=== PATIENT | female | born 1970 | race Caucasian/White ===

== ENCOUNTER 2023-02-23 09:24 | Outpatient (OUT) | payer BC, SELFPAY ==
--- NOTE | 2023-02-23 09:32 | MM_ITS ---
Patient: SHRADDHA DAN Exam Date: 02/23/2023 : 1970 Gender:F Ordering : DR Diogo Ervin . Admission #: [id number] Family : DR Sunny Joya . Order #: [id number] CLICK HERE TO VIEW EXAM RADIOLOGY REPORT PROCEDURE: MM TOMOSYNTHESIS SCREENING BI COMPARISON: MG MAMM SCREEN 3D ASHLEY CAD, 10/22/2020. MG MAMM SCREEN 3D ASHLEY CAD, 11/21/2021. INDICATIONS: Screening Calculator Name NCI Breast Cancer Risk Assessment Tool 5 Year Breast Cancer Risk 0.90% Lifetime Breast Cancer Risk 8.80% Personal Breast Cancer No Personal Ovarian Cancer No Treatments None Family Cancers Grandfather-maternal with pancreas cancer at age ~75; Father with colon cancer at age 74; Grandmother-maternal with stomach cancer at age ~70. LOCATION: [facility] BREAST COMPOSITION: Scattered areas fibroglandular density. FINDINGS: DIAGNOSTIC CATEGORY 1--NEGATIVE. NO CHANGE FROM COMPARISON ASSESSMENT. Scattered benign-appearing calcifications are present. Scattered benign-appearing lymph nodes are present. RIGHT BREAST: No significant suspicious finding. LEFT BREAST: No significant suspicious finding. RECOMMENDATIONS: ROUTINE MAMMOGRAM AND CLINICAL EVALUATION IN 12 MONTHS. PLEASE NOTE: A NORMAL MAMMOGRAM DOES NOT EXCLUDE THE POSSIBILITY OF BREAST CANCER. A CLINICALLY SUSPICIOUS PALPABLE LUMP SHOULD BE BIOPSIED. Dictated by: Alonzo Jaramillo MD on 02/23/2023 at 12:21 Approved by: Alonzo Jaramillo MD on 02/23/2023 at 12:34
== END 2023-02-23 09:25 | disposition home or self-care (01) ==
LOC: MAMMO 09:25
PROVIDERS: PCP Family Medicine; Visit Provider Obstetrics & Gynecology
DX: Z12.31 Encounter for screening mammogram for malignant neoplasm of breast (principal); Z80.0 Family history of malignant neoplasm of digestive organs
CPT/HCPCS: 77063; 77067

== ENCOUNTER 2023-05-12 07:51 | Outpatient (OUT) | payer BC, SELFPAY ==
[2023-05-12 09:00] LABS: Basophils Percent Auto 0.3 % (0.2-2.0); Eosinophils Absolute Auto 0.1 10^3/uL (0.0-0.7); Eosinophils Percent Auto 1.3 % (0.9-7.0); Hematocrit 40.8 % (36.0-48.0); Hemoglobin 12.6 g/dL (12.0-16.0); Immature Granulocytes Abs Auto 0.01 10^3/uL (0.00-0.03); Immature Granulocytes Pct Auto 0.1 % (0.0-0.5); Lymphocytes Absolute Auto 1.7 10^3/uL (1.2-3.8); Lymphocytes Percent Auto 25.2 % (20.5-60.0); Mean Corpuscular HGB Conc 30.9 g/dL (29.9-35.2); Mean Corpuscular Hemoglobin 28.9 pg (26.7-34.0); Mean Corpuscular Volume 93.6 fL (81.0-99.0); Mean Platelet Volume 10.7 fL (9.5-13.5); Monocytes Absolute Auto 0.4 10^3/uL (0.3-0.8); Monocytes Percent Auto 5.7 % (1.7-12.0); Neutrophils Absolute Auto 4.5 10^3/uL (1.4-6.5); Neutrophils Percent Auto 67.4 % (43.0-75.0); Platelet Count 333 10^3/uL (150-450); Red Blood Count 4.36 10^6/uL (4.20-5.40); Red Cell Distribution Width 14.1 % (11.0-15.0); White Blood Count 6.7 10^3/uL (4.0-11.0)
[2023-05-12 09:21] LABS: Estimated Average Glucose 123 mg/dL; Glycohemoglobin A1C 5.9 % (4.5-6.2)
[2023-05-12 09:34] LABS: Alanine Aminotransferase 26 U/L (14-59); Albumin Globulin Ratio 0.7; Albumin Level 3.3 g/dL (3.4-5.0); Alkaline Phosphatase 97 U/L (46-116); Anion Gap 13.3; Aspartate Amino Transferase 33 U/L (15-37); BUN Creatinine Ratio 21.3; Bilirubin Total 0.7 mg/dL (0.2-1.0); Calcium 8.6 mg/dL (8.5-10.1); Carbon Dioxide 27.1 mmol/L (21.0-32.0); Chloride 106 mmol/L (98-107); Chol HDL Ratio 3.5; Cholesterol 180 mg/dL (<=200); Estimated GFR (African America >60 (>=60); Estimated GFR (Non-African Ame >60 (>=60); Globulin 4.5 g/dL; Glucose 118 mg/dL (74-106); HDL Cholesterol 51 mg/dL (40-60); LDL Cholesterol Calculated 107.4 mg/dL; Potassium 5.4 mmol/L (3.5-5.1); Sodium 141 mmol/L (136-145); Total Protein 7.8 g/dL (6.4-8.2); Triglycerides 108 mg/dL (<=150); VLDL CHOLESTEROL 21.6 mg/dL
[2023-05-12 09:52] LABS: Thyroid Stimulating Hormone 2.211 uIU/mL (0.358-3.740)
[2023-05-14 12:08] LABS: Insulin 4.5 uIU/mL (2.6-24.9)
== END 2023-05-12 07:52 | disposition home or self-care (01) ==
LOC: LAB 07:52
PROVIDERS: PCP Family Medicine; Visit Provider Family Medicine
DX: Z00.00 Encounter for general adult medical examination without abnormal findings (principal)
CPT/HCPCS: 36415; 80053; 80061; 82306; 83036; 83525; 83540; 84436; 84443; 84481; 85025

== ENCOUNTER 2023-05-28 20:47 | Outpatient (REF) | payer BC, SELFPAY ==
[2023-06-01 15:09] LABS: Age Gdln ACOG Testing Note (.); HPV Aptima Negative (Negative); IGP, Aptima HPV, rfx 16/18,45 Note (.)
== END 2023-05-28 20:48 | disposition home or self-care (01) ==
LOC: LAB 20:47
PROVIDERS: PCP Family Medicine; Visit Provider Obstetrics & Gynecology
DX: Z01.419 Encounter for gynecological examination (general) (routine) without abnormal findings (principal)
CPT/HCPCS: 87624; G0145

== ENCOUNTER 2023-06-13 14:58 | Outpatient (OUT) | payer BC, SELFPAY ==
--- NOTE | 2023-06-13 14:20 | US_ITS ---
The [address] [address] Patient Name: SHRADDHA DAN MRN: [id number] date: 1970 Sex: F Assigned Patient Location: US Current Patient Location: US Accession/Order Number: [id number] Exam Date: 06/13/2023 14:20 Report Date: 06/13/2023 16:32 At the request of: KAYA ALARCON Procedure: US pelvis w/ transvaginal EXAM: US pelvis w/ transvaginal HISTORY: ENLARGED UTERUS COMPARISON: None. TECHNIQUE: Pelvic sonography was performed utilizing grayscale and color Doppler technique. FINDINGS: Anteverted uterus measures 10.2 x 4.3 x 7.0 cm. Uterine endometrial stripe measures 1.5 cm in thickness. Right ovary not visualized. Left ovary measures 1.9 x 1.2 x 1.5 cm. Normal left ovarian parenchyma. Scant color flow seen, likely related to deep positioning. No significant free fluid within the pelvis. US/US pelvis w/ transvaginal IMPRESSION: 1. Thickened postmenopausal endometrium. 2. Right ovary not visualized. Left ovary is unremarkable. Electronically authenticated by: CHERELLE MCLEAN Date: 06/13/2023 16:32
== END 2023-06-13 14:59 | disposition home or self-care (01) ==
LOC: US 14:58
PROVIDERS: PCP Family Medicine; Visit Provider Obstetrics & Gynecology
DX: N85.2 Hypertrophy of uterus (principal); R19.00 Intra-abdominal and pelvic swelling, mass and lump, unspecified site
CPT/HCPCS: 76830; 76856

== ENCOUNTER 2023-07-16 | Outpatient (REF) | payer BC, SELFPAY ==
--- OUTSIDE RECORDS SUMMARY | 2023-07-27 08:10 | XMS_ITS | CCD ---
Author Name Unknown Address [address] [place] [address] Organization [facility] Care Team Providers Care Distribution Associate Name Role Phone DMITRIY, DR RODRIGUEZ Admitting Unavailable HOY, DR RODRIGUEZ Attending Unavailable HOY, DR RODRIGUEZ Consulting Unavailable HOY, DR RODRIGUEZ Primary Care Unavailable HOY, DR RODRIGUEZ Primary Care Unavailable DORIAN, DR KIRKPATRICK Admitting Unavailable VINNY, DR EUNICE Mcfadden Consulting Unavailable DORIAN, DR KIRKPATRICK Attending Unavailable DORIAN, DR KIRKPATRICK Consulting Unavailable DMITRIY, DR RODRIGUEZ Primary Care Unavailable KARSALLYK, DR SPENCER Admitting Unavailable KARASIK, DR SPENCER Attending Unavailable KARASIK, DR SPENCER Consulting Unavailable DORIAN, KAYA Attending Unavailable DORIAN, KAYA Attending Unavailable KAYA ALARCON Attending Unavailable Problems Active Problems Problem Classification Problem Date Documented Date Episodic/Chronic Immunizations and screening for infectious disease (1 source) Encounter for screening for human papillomavirus (HPV); Translations: [ENC SCREENING HUMAN PAPILLOMAVIRUS] Onset: 02-26-2022 Episodic Other screening for suspected conditions (not mental disorders or infectious disease) (8 sources) Encounter for screening for malignant neoplasm of cervix; Translations: [Encounter for screening mammogram for malignant neoplasm of breast] Onset: 11-21-2021 Episodic Past or Other Problems Problem Classification Problem Date Documented Da te Episodic/Chronic Residual codes; unclassified (1 source) Family history of malignant neoplasm of digestive organs; Translations: [FAM HX MALIG NEOPLASM DIGESTIV ORGN] Onset: 11-24-2021 Episodic Results Test Name Value Interpretation Reference Range Facility INSULINon 05-08-2022 Insulin 14.8 uIU/mL Normal 2.6-24.9 [facility] Comment on above: Performed By: #### I NSULIN #### [facility] [address] [place] [address] Dr. Carol Ann Rivas CBC AUTO DIFFon 05-06-2022 BASO # 0.0 103/ul Normal 0.0-0.1 [facility] Comment on above: Performed By: #### C BC #### [facility] [address] [place] [address] Dr. Carol Ann Rivas Basophils/100 WBC (Bld) 0.5 % Normal 0.2-2.0 [facility] Comment on above: Performed By: #### C BC #### [facility] [address] [place] [address] Dr. Carol Ann Rivas EO # 0.2 103/ul Normal 0.0-0.7 [facility] Comment on above: Performed By: #### C BC #### [facility] [address] [place] [address] Dr. Carol Ann Rivas Eosinophils/100 WBC (Bld) 2.2 % Normal 0.9-7.0 [facility] Comment on above: Performed By: #### C BC #### [facility] [address] [place] [address] Dr. Carol Ann Rivas Erythrocyte distribution width (RBC) [Ratio] 14.5 % Normal 11.0-15.0 [facility] Comment on above: Performed By: #### C BC #### [facility] [address] [place] [address] Dr. Carol Ann Rivas Hematocrit (Bld) [Volume fraction] 40.7 % Normal 36.0-48.0 [facility] Comment on above: Performed By: #### C BC #### [facility] [address] [place] [address] Dr. Carol Ann Rivas Hemoglobin (Bld) [Mass/Vol] 13.1 g/dL Normal 12.0-16.0 [facility] Comment on above: Performed By: #### C BC #### [facility] [address] [place] [address] Dr. Carol Ann Rivas IG # 0.02 10e3/ul Normal 0.00-0.03 [facility] Comment on above: Performed By: #### C BC #### [facility] [address] [place] [address] Dr. Carol Ann Rivas IG % 0.3 % Normal 0.0-0.5 [facility] Comment on above: Performed By: #### C BC #### [facility] [address] [place] [address] Dr. Carol Ann Rivas LYMPH # 2.0 103/ul Normal 1.2-3.8 [facility] Comment on above: Performed By: #### C BC #### [facility] [address] [place] [address] Dr. Carol Ann Rivas Lymphocytes/100 WBC (Bld) 25.8 % Normal 20.5-60.0 [facility] Comment on above: Performed By: #### C BC #### [facility] [address] [place] [address] Dr. Carol Ann Rivas MANUAL DIFF REQ NO Normal [facility] Comment on above: Performed By: #### C BC #### [facility] [address] [place] [address] Dr. Carol Ann Rivas MCH (RBC) [Entitic mass] 29.5 pg Normal 26.7-34.0 [facility] Comment on above: Performed By: #### C BC #### [facility] [address] [place] [address] Dr. Carol Ann Rivas MCHC (RBC) [Mass/Vol] 32.2 g/dL Normal 29.9-35.2 [facility] Comment on above: Performed By: #### C BC #### [facility] [address] [place] [address] Dr. Carol Ann Rivas MCV (RBC) [Entitic vol] 91.7 fL Normal 81.0-99.0 [facility] Comment on above: Performed By: #### C BC #### [facility] [address] [place] [address] Dr. Carol Ann Rivas MONO # 0.5 103/ul Normal 0.3-0.8 [facility] Comment on above: Performed By: #### C BC #### [facility] [address] [place] [address] Dr. Carol Ann Rivas Monocytes/100 WBC (Bld) 5.8 % Normal 1.7-12.0 [facility] Comment on above: Performed By: #### C BC #### [facility] [address] [place] [address] Dr. Carol Ann Rivas NEUT # 5.2 103/ul Normal 1.4-6.5 [facility] Comment on above: Performed By: #### C BC #### [facility] [address] [place] [address] Dr. Carol Ann Rivas Neutrophils/100 WBC (Bld) 65.4 % Normal 43.0-75.0 [facility] Comment on above: Performed By: #### C BC #### [facility] [address] [place] [address] Dr. Carol Ann Rivas Platelet mean volume (Bld) [Entitic vol] 10.1 fL Normal 9.5-13.5 [facility] Comment on above: Performed By: #### C BC #### [facility] [address] [place] [address] Dr. Carol Ann Rivas PLT 285 103/ul Normal 150-450 [facility] Comment on above: Performed By: #### C BC #### [facility] [address] [place] [address] Dr. Carol Ann Rivas RBC 4.44 106/ul Normal 4.20-5.40 [facility] Comment on above: Performed By: #### C BC #### [facility] [address] [place] [address] Dr. Carol Ann Rivas WBC 7.9 103/ul Normal 4.0-11.0 [facility] Comment on above: Performed By: #### C BC #### [facility] [address] [place] [address] Dr. Carol Ann Rivas FREE THYROXINE INDEX T7on FTI 3.04 Normal 1.30-4.50 [facility] Comment on above: Performed By: #### L IPID, T7, CMP, TSH #### [facility] [address] [place] [address] Dr. Carol Ann Rivas T3U 31.0 % Normal 30.0-39.0 [facility] Comment on above: Performed By: #### L IPID, T7, CMP, TSH #### [facility] [address] [address] [address] Carol Ann Rivas T4 [Mass/Vol] 9.80 ug/dL Normal 4.80-13.90 [facility] Comment on above: Performed By: #### L IPID, T7, CMP, TSH #### [facility] [address] [address] [address] Carol Ann Rivas GLYCOHEMOGLOBIN A1Con 2021 ADA RECOMMENDATION SEE BELOW Normal [facility] Comment on above: Result Comment: ADA RECOMMENDED LIMIT 4.0 - 6.0 ADA THERAPEUTIC TARGET < 7.0 ACTION SUGGESTED > 7.0 Performed By: #### A 1C #### [facility] [address] [address] [address] Carol Ann Rivas Glucose [Mass/Vol] 120 mg/dL Normal [facility] Comment on above: Performed By: #### A 1C #### [facility] [address] [address] [address] Carol Ann Rivas HbA1c (Bld) [Mass fraction] 5.8 % Normal 4.5-6.2 [facility] Comment on above: Performed By: #### A 1C #### [facility] [address] [place] [address] Dr. Carol Ann Rivas IRONon 05-06-2022 Iron [Mass/Vol] 56.0 ug/dL Normal 50.0-170.0 [facility] Comment on above: Performed By: #### V ITAD, IRON #### [facility] [address] [address] [address] Carol Ann Rivas LIPID PROFILEon 05-06-2022 CHOL-HDL RATIO NORM SEE BELOW Normal [facility] Comment on above: Result Comment: 3.3 - 4.4 LOW RISK 4.4 - 7.1 AVERAGE RISK 7.1 - 11.0 MODERATE RISK >11.0 HIGH RISK Performed By: #### L IPID, T7, CMP, TSH #### [facility] [address] [address] [address] Carol Ann Rivas Cholesterol [Mass/Vol] 190 mg/dL Normal <=200 [facility] Comment on above: Performed By: #### L IPID, T7, CMP, TSH #### [facility] [address] [address] [address] Carol Ann Rivas Cholesterol in HDL [Mass/Vol] 58 mg/dL Normal 40-60 [facility] Comment on above: Performed By: #### L IPID, T7, CMP, TSH #### [facility] [address] [address] [address] Carol Ann Rivas Cholesterol in LDL [Mass/Vol] 109.2 mg/dL Normal [facility] Comment on above: Performed By: #### L IPID, T7, CMP, TSH #### [facility] [address] [address] [address] Carol Ann Rivas Cholesterol.total/Cho lesterol in HDL [Mass ratio] 3.3 {ratio} Normal [facility] Comment on above: Performed By: #### L IPID, T7, CMP, TSH #### [facility] [address] [address] [address] Carol Ann Rivas HDL NORMAL > or = 60 mg/dl - LO W CARDIOVASCULAR RISK <40 mg/dl - HIGH CARDIOVASCULAR RISK Normal [facility] Comment on above: Performed By: #### L IPID, T7, CMP, TSH #### [facility] [address] [address] [address] Carol Ann Rivas LDL CALC NORMAL SEE BELOW Normal [facility] Comment on above: Result Comment: <100 mg/dl OPTIMAL 100 - 129 mg/dl NEAR OR ABOVE OPTIMAL 130 - 159 mg/dl BORDERLINE HIGH 160 - 189 mg/dl HIGH >190 mg/dl VERY HIGH Performed By: #### L IPID, T7, CMP, TSH #### [facility] [address] [address] [address] Carol Ann Rivas Triglyceride [Mass/Vol] 114 mg/dL Normal <=150 [facility] Comment on above: Performed By: #### L IPID, T7, CMP, TSH #### [facility] [address] [address] [address] Carol Ann Rivas VLDL CALC 22.8 mg/dL Normal [facility] Comment on above: Performed By: #### L IPID, T7, CMP, TSH #### [facility] [address] [address] [address] Carol Ann Rivas PROF 14(COMP METB)on 022 Albumin [Mass/Vol] 3.4 g/dL Normal 3.4-5.0 [facility] Comment on above: Performed By: #### L IPID, T7, CMP, TSH #### [facility] [address] [address] [address] Carol Ann Rivas Albumin/Globulin [Mass ratio] 0.8 {ratio} Normal [facility] Comment on above: Performed By: #### L IPID, T7, CMP, TSH #### [facility] [address] [address] [address] Carol Ann Rivas ALP [Catalytic activity/Vol] 88 U/L Normal 46-116 [facility] Comment on above: Performed By: #### L IPID, T7, CMP, TSH #### [facility] [address] [address] [address] Carol Ann Rivas ALT [Catalytic activity/Vol] 21 U/L Normal 14-59 [facility] Comment on above: Performed By: #### L IPID, T7, CMP, TSH #### [facility] [address] [address] [address] Carol Ann Rivas Anion gap [Moles/Vol] 9.1 mmol/L Normal [facility] Comment on above: Performed By: #### L IPID, T7, CMP, TSH #### [facility] [address] [address] [address] Carol Ann Rivas AST [Catalytic activity/Vol] 13 U/L Critically low 15-37 [facility] Comment on above: Performed By: #### L IPID, T7, CMP, TSH #### [facility] [address] [address] [address] Carol Ann Rivas Bilirubin [Mass/Vol] 0.5 mg/dL Normal 0.2-1.0 [facility] Comment on above: Performed By: #### L IPID, T7, CMP, TSH #### [facility] [address] [place] [address] Dr. Carol Ann Rivas Calcium [Mass/Vol] 8.7 mg/dL Normal 8.5-10.1 [facility] Comment on above: Performed By: #### L IPID, T7, CMP, TSH #### [facility] [address] [place] [address] Dr. Carol Ann Rivas Chloride [Moles/Vol] 104 mmol/L Normal 98-107 [facility] Comment on above: Performed By: #### L IPID, T7, CMP, TSH #### [facility] [address] [place] [address] Dr. Carol Ann Rivas CO2 [Moles/Vol] 28.9 mmol/L Normal 21.0-32.0 [facility] Comment on above: Performed By: #### L IPID, T7, CMP, TSH #### [facility] [address] [place] [address] Dr. Carol Ann Rivas Creatinine [Mass/Vol] 0.74 mg/dL Normal 0.55-1.02 [facility] Comment on above: Performed By: #### L IPID, T7, CMP, TSH #### [facility] [address] [place] [address] Dr. Carol Ann Rivas EGFR-AF QATARI >60 Normal >=60 [facility] Comment on above: Performed By: #### L IPID, T7, CMP, TSH #### [facility] [address] [place] [address] Dr. Carol Ann Rivas EGFR-NON AF QATARI >60 Normal >=60 [facility] Comment on above: Performed By: #### L IPID, T7, CMP, TSH #### [facility] [address] [place] [address] Dr. Carol Ann Rivas Globulin (S) [Mass/Vol] 4.3 g/dL Normal [facility] Comment on above: Performed By: #### L IPID, T7, CMP, TSH #### [facility] [address] [place] [address] Dr. Carol Ann Rivas Glucose [Mass/Vol] 107 mg/dL Critically high 74-106 [facility] Comment on above: Performed By: #### L IPID, T7, CMP, TSH #### [facility] [address] [place] [address] Dr. Carol Ann Rivas Potassium [Moles/Vol] 4.0 mmol/L Normal 3.5-5.1 [facility] Comment on above: Performed By: #### L IPID, T7, CMP, TSH #### [facility] [address] [place] [address] Dr. Carol Ann Rivas Protein [Mass/Vol] 7.7 g/dL Normal 6.4-8.2 [facility] Comment on above: Performed By: #### L IPID, T7, CMP, TSH #### [facility] [address] [place] [address] Dr. Carol Ann Rivas Sodium [Moles/Vol] 138 mmol/L Normal 136-145 [facility] Comment on above: Performed By: #### L IPID, T7, CMP, TSH #### [facility] [address] [place] [address] Dr. Carol Ann Rivas Urea nitrogen [Mass/Vol] 15.0 mg/dL Normal 7.0-18.0 [facility] Comment on above: Performed By: #### L IPID, T7, CMP, TSH #### [facility] [address] [place] [address] Dr. Carol Ann Rivas Urea nitrogen/Creatinine [Mass ratio] 20.3 mg/mg Normal [facility] Comment on above: Performed By: #### L IPID, T7, CMP, TSH #### [facility] [address] [place] [address] Dr. Carol Ann Rivas TSHon 05-06-2022 TSH 2.519 uIU/mL Normal 0.358-3.740 [facility] Comment on above: Performed By: #### I NSULIN #### [facility] [address] [place] [address] Dr. Carol Ann Rivas VITAMIN D 25 OHon 05-06-2022 VIT D 25-OH 30.4 ng/mL Normal [facility] Comment on above: Performed By: #### V DANICA, IRON #### [facility] [address] [place] [address] Dr. Carol Ann Rivas VIT D RANGES SEE BELOW [facility] Comment on above: Result Comment: <20 ng/mL Vit D deficient 20 - <30 ng/mL Vit D insufficient 30 - 100 ng/mL Vit D sufficient >100 ng/mL Potential Toxicity Performed By: #### V DANICA, IRON #### [facility] [address] [place] [address] Dr. Carol Ann Rivas PAP ACOG PANEL 2: 30 to 65on 03-03-2022 . . Normal [facility] Comment on above: Result Comment: Perf ormed at: WB Performed By: #### [id number] #### [facility] [address] [place] [address] Dr. Carol Ann Rivas Age Gdln ACOG Testing 30-65 [facility] Comment on above: Performed By: #### [id number] #### [facility] [address] [place] [address] Dr. Carol Ann Rivas DIAGNOSIS: Comment Normal [facility] Comment on above: Result Comment: NEGA TIVE FOR INTRAEPITHELIAL LESION OR MALIGNANCY. Performed at: WB Performed By: #### [id number] #### [facility] [address] [place] [address] Dr. Carol Ann Rivas HPV Aptima Negative Normal Negative [facility] Comment on above: Result Comment: This nucleic acid amplification test detects fourteen high-risk HPV types (16,18,31,33,35,39,45,51,52,56,58,59,66,68) without differentiation. Performed at: =G Performed By: #### [id number] #### [facility] [address] [place] [address] Dr. Carol Ann Rivas Methodology: Comment Normal [facility] Comment on above: Result Comment: This liquid based ThinPrep(R) pap test was screened with the use of an image guided system. Performed at: WB Performed By: #### [id number] #### [facility] [address] [place] [address] Dr. Carol Ann Rivas Note: Comment Normal [facility] Comment on above: Result Comment: The Pap smear is a screening test designed to aid in the detection of premalignant and malignant conditions of the uterine cervix. It is not a diagnostic procedure and should not be used as the sole means of detecting cervical cancer. Both false-positive and false-negative reports do occur. . Performed at: WB Performed By: #### [id number] #### [facility] [address] [address] [address] Carol Ann Rivas Performed by: Comment Normal [facility] Comment on above: Result Comment: Lola Cuadra, Sales Representative [employer] ([employer]) Performed at: WB Performed By: #### [id number] #### [facility] [address] [place] [address] Dr. Carol Ann Rivas Specimen adequacy: Comment Normal [facility] Comment on above: Result Comment: Sati sfactory for evaluation. Endocervical and/or squamous metaplastic cells (endocervical component) are present. Performed at: WB Performed By: #### [id number] #### [facility] [address] [place] [address] Dr. Carol Ann Rivas MG MAMM SCREEN 3D ASHLEY CADon 11-21-2021 MG MAMM SCREEN 3D ASHLEY CAD Patient: SHRADDHA DAN Exam Date: 11/21/2021 : 1970 Gender:F Ordering : DR KAYA ALARCON . Admission #: [id number] Family : Order #: [id number] CLICK HERE TO VIEW EXAM RADIOLOGY REPORT PROCEDURE: MAMMOGRAM SCREENING 3D BILATERAL CAD COMPARISON: MG MAMM SCREEN ASHLEY W CAD, 01/14/2019. MG MAMM SCREEN 3D ASHLEY CAD, 10/22/2020. INDICATIONS: Screening mammography Calculator Name NCI Breast Cancer Risk Assessment Tool 5 Year Breast Cancer Risk 0.90% Lifetime Breast Cancer Risk 8.90% Personal Breast Cancer No Personal Ovarian Cancer No Treatments None Family Cancers Grandfather-maternal with pancreas cancer at age 75; Father with colon cancer at age 74; Grandmother-maternal with stomach cancer at age 70. LOCATION: [facility] BREAST COMPOSITION: Scattered areas fibroglandular density. FINDINGS: DIAGNOSTIC CATEGORY 1--NEGATIVE. NO CHANGE FROM COMPARISON ASSESSMENT. Scattered benign-appearing calcifications are present. Scattered benign-appearing lymph nodes are present. RIGHT BREAST: No significant suspicious finding. LEFT BREAST: No significant suspicious finding. RECOMMENDATIONS: ROUTINE MAMMOGRAM AND CLINICAL EVALUATION IN 12 MONTHS. PLEASE NOTE: A NORMAL MAMMOGRAM DOES NOT EXCLUDE THE POSSIBILITY OF BREAST CANCER. A CLINICALLY SUSPICIOUS PALPABLE LUMP SHOULD BE BIOPSIED. Dictated by: Eunice Jaramillo MD on 11/21/2021 at 08:40 Approved by: Eunice Jaramillo MD on 11/21/2021 at 08:49 Normal [facility] Encounters Encounter Date Encounter Type Care Provider Facility Start: 07-16-2023 End: 07-16-2023 ambulatory KAYA DORIAN Not Available Start: 06-20-2023 ambulatory KAYA DORIAN Not Availa ble Start: 05-28-2023 End: 05-28-2023 ambulatory KAYA DORIAN Not Available Start: 05-11-2022 Encounter for genera l adult medical examination without abnormal findings DR JENNIFER IZAGUIRRE [facility] Start: 05-06-2022 End: 05-07-[address] JENNIFER IZAGUIRRE Facility:[facility] Start: 05-06-2022 End: 05-07-2022 Encounter for general adult medical examination without abnormal findings DR JENNIFER IZAGUIRRE Facility:[facility] Start: 02-24-2022 End: 02-24-[address] JENNIFER IZAGUIRRE Facility:[facility] Start: 11-21-2021 End: 11-22-[address] JENNIFER IZAGUIRRE Facility:[facility] Payers Date Payer Category Payer Unknown [id number] 2.16.84 [id number] 1970 Unknown [id number] 2.16.84 [id number] 1970 Unknown [id number] 1972 Unknown [id number] 2.16.84 [id number] 1972 Unknown [id number] 1972 Unknown [id number] 1957 Unknown [id number] Summary Purpose Family History No Family History Records FoundNo Family History Records Found Advance Directives No Advanced Directives Records FoundNo Advanced Directives Records Found Additional Source Comments INFORMATION SOURCE (unrecogn ized section and content) DATE CREATED AUTHOR 05/12/2022 [facility] DATE CREATED AUTHOR AUTHOR'S ORGANIZ ATSHARDA 07/17/2023 [facility] dical Specialists [facility] FOR RECORDS PERTAINING TO PATIENTS WHO ARE OR HAVE BEEN ENROLLED IN A CHEMICAL DEPENDENCY/SUBSTANCEABUSE PROGRAM, SOME INFORMATION MAY BE OMITTED. This clinical summary was aggregated from multiple sources. Caution should be exercised in using it in the provision of clinical care. This summary normalizes information from multiple sources, and as a consequence, information in this document may materially change the coding, format and clinical context of patient data. In addition, data may be omitted in some cases. CLINICAL DECISIONS SHOULD BE BASED ON THE PRIMARY CLINICAL RECORDS. [facility] [employer]. provides no warranty or guarantee of the accuracy or completeness of information in this document.
== END 2023-07-16 00:01 | disposition home or self-care (01) ==
LOC: LAB
PROVIDERS: PCP Family Medicine; Visit Provider Obstetrics & Gynecology
DX: R93.89 Abnormal findings on diagnostic imaging of other specified body structures (principal)
CPT/HCPCS: 88305

== ENCOUNTER 2024-02-25 08:17 | Outpatient (OUT) | payer BC, SELFPAY ==
--- NOTE | 2024-02-25 08:19 | MM_ITS ---
Patient Name: SHRADDHA DAN MR#: [id number] : 1970 Exam Date: 02/25/2024 Ordering Doctor: DR Diogo Ervin . RADIOLOGY REPORT PROCEDURE: MM TOMOSYNTHESIS SCREENING BI COMPARISON: MG MAMM SCREEN 3D ASHLEY CAD, 11/21/2021. MM TOMOSYNTHESIS SCREENING BI, 02/23/2023. INDICATIONS: Screening Calculator Name NCI Breast Cancer Risk Assessment Tool 5 Year Breast Cancer Risk 1.00% Lifetime Breast Cancer Risk 8.70% Personal Breast Cancer No Personal Ovarian Cancer No Treatments None Family Cancers Grandfather-maternal with pancreas cancer at age ~75; Father with colon cancer at age 74; Grandmother-maternal with stomach cancer at age ~70. LOCATION: [facility] BREAST COMPOSITION: There are scattered areas of fibroglandular density. FINDINGS: DIAGNOSTIC CATEGORY 2--BENIGN FINDING. NO CHANGE FROM COMPARISON. Scattered benign-appearing calcifications are present. Scattered benign-appearing lymph nodes are present. RIGHT BREAST: No significant suspicious finding. LEFT BREAST: No significant suspicious finding. RECOMMENDATIONS: ROUTINE MAMMOGRAM AND CLINICAL EVALUATION IN 12 MONTHS. PLEASE NOTE: A NORMAL MAMMOGRAM DOES NOT EXCLUDE THE POSSIBILITY OF BREAST CANCER. A CLINICALLY SUSPICIOUS PALPABLE LUMP SHOULD BE BIOPSIED. Dictated by: Alonzo Jaramillo MD on 02/25/2024 at 16:02 Approved by: Alonzo Jaramillo MD on 02/25/2024 at 16:03
--- OUTSIDE RECORDS SUMMARY | 2024-02-25 08:35 | XMS_ITS | CCD ---
Author Organization [facility] Inform ion [facility] Care Team Providers Care Work Order Sorting Clerk Name Role Phone DMITRIY, DR RODRIGUEZ Admitting Unavailable DMITRIY, DR RODRIGUEZ Attending Unavailable DMITRIY, DR RODRIGUEZ Consulting Unavailable DMITRIY, DR RODRIGUEZ Primary Care Unavailable DMITRIY, DR RODRIGUEZ Primary Care Unavailable DORIAN, DR KIRKPATRICK Admitting Unavailable WEST, DR EUNICE Mcfadden Consulting Unavailable DORIAN, DR KIRKPATRICK Attending Unavailable DORIAN, DR KIRKPATRICK Consulting Unavailable DMITRIY, DR RODRIGUEZ Primary Care Unavailable KARABDULKADIR, DR SPENCER Admitting Unavailable KARASIK, DR SPENCER Attending Unavailable KARASIK, DR SPENCER Consulting Unavailable DORIAN, KAYA Attending Unavailable DORIAN, KAYA Attending Unavailable DORIAN, KAYA Attending Unavailable Problems Active Problems Problem Classification [...] 05-08-2022 Insulin 14.8 uIU/mL Normal 2.6-24.9 [facility] Comment on above: Performed By: #### I NSULIN #### [facility] [address] [address] [address] Carol Ann Rivas CBC AUTO DIFFon 05-06-2022 BASO # 0.0 103/ul Normal 0.0-0.1 [facility] Comment on above: Performed By: #### C BC #### [facility] [address] [place] [address] Dr. Carol Ann Rivas Basophils/100 WBC (Bld) 0.5 % Normal 0.2-2.0 [facility] Comment on above: Performed By: #### C BC #### [facility] [address] [place] [address] Dr. Carol Ann Rivas EO # 0.2 103/ul Normal 0.0-0.7 [facility] Comment on above: Performed By: #### C BC #### [facility] [address] [place] [address] Dr. Carol Ann Rivas Eosinophils/100 WBC (Bld) 2.2 % Normal 0.9-7.0 [facility] Comment on above: Performed By: #### C BC #### [facility] [address] [place] [address] Dr. Carol Ann Rivas Erythrocyte distribution width (RBC) [Ratio] 14.5 % Normal 11.0-15.0 [facility] Comment on above: Performed By: #### C BC #### [facility] [address] [place] [address] Dr. Carol Ann Rivas Hematocrit (Bld) [Volume fraction] 40.7 % Normal 36.0-48.0 [facility] Comment on above: Performed By: #### C BC #### [facility] [address] [place] [address] Dr. Carol Ann Rvias Hemoglobin (Bld) [Mass/Vol] 13.1 g/dL Normal 12.0-16.0 [facility] Comment on above: Performed By: #### C BC #### [facility] [address] [place] [address] Dr. Carol Ann Rivas IG # 0.02 10e3/ul Normal 0.00-0.03 [facility] Comment on above: Performed By: #### C BC #### [facility] [address] [place] [address] Dr. Carol Ann Rivas IG % 0.3 % Normal 0.0-0.5 [facility] Comment on above: Performed By: #### C BC #### [facility] [address] [place] [address] Dr. Carol Ann Rivas LYMPH # 2.0 103/ul Normal 1.2-3.8 [facility] Comment on above: Performed By: #### C BC #### [facility] [address] [place] [address] Dr. Carol Ann Rivas Lymphocytes/100 WBC (Bld) 25.8 % Normal 20.5-60.0 [facility] Comment on above: Performed By: #### C BC #### [facility] [address] [place] [address] Dr. Carol Ann Rivas MANUAL DIFF REQ NO Normal [facility] Comment on above: Performed By: #### C BC #### [facility] [address] [place] [address] Dr. Carol Ann Rivas MCH (RBC) [Entitic mass] 29.5 pg Normal 26.7-34.0 [facility] Comment on above: Performed By: #### C BC #### [facility] [address] [place] [address] Dr. Carol Ann Rivas MCHC (RBC) [Mass/Vol] 32.2 g/dL Normal 29.9-35.2 [facility] Comment on above: Performed By: #### C BC #### [facility] [address] [place] [address] Dr. Carol Ann Rivas MCV (RBC) [Entitic vol] 91.7 fL Normal 81.0-99.0 [facility] Comment on above: Performed By: #### C BC #### [facility] [address] [place] [address] Dr. Carol Ann Rivas MONO # 0.5 103/ul Normal 0.3-0.8 [facility] Comment on above: Performed By: #### C BC #### [facility] [address] [place] [address] Dr. Carol Ann Rivas Monocytes/100 WBC (Bld) 5.8 % Normal 1.7-12.0 [facility] Comment on above: Performed By: #### C BC #### [facility] [address] [place] [address] Dr. Carol Ann Rivas NEUT # 5.2 103/ul Normal 1.4-6.5 [facility] Comment on above: Performed By: #### C BC #### [facility] [address] [place] [address] Dr. Carol Ann Rivas Neutrophils/100 WBC (Bld) 65.4 % Normal 43.0-75.0 [facility] Comment on above: Performed By: #### C BC #### [facility] [address] [place] [address] Dr. Carol Ann Rivas Platelet mean volume (Bld) [Entitic vol] 10.1 fL Normal 9.5-13.5 [facility] Comment on above: Performed By: #### C BC #### [facility] [address] [place] [address] Dr. Carol Ann Rivas PLT 285 103/ul Normal 150-450 [facility] Comment on above: Performed By: #### C BC #### [facility] [address] [place] [address] Dr. Carol Ann Rivas RBC 4.44 106/ul Normal 4.20-5.40 [facility] Comment on above: Performed By: #### C BC #### [facility] [address] [place] [address] Dr. Carol Ann Rivas WBC 7.9 103/ul Normal 4.0-11.0 [facility] Comment on above: Performed By: #### C BC #### [facility] [address] [place] [address] Dr. Carol Ann Rivas FREE THYROXINE INDEX T7on FTI 3.04 Normal 1.30-4.50 [facility] Comment on above: Performed By: #### L IPID, T7, CMP, TSH #### [facility] [address] [place] [address] Dr. Carol Ann Rivas T3U 31.0 % Normal 30.0-39.0 [facility] Comment on above: Performed By: #### L IPID, T7, CMP, TSH #### [facility] [address] [address] [address] Carol Ann Rivas T4 [Mass/Vol] 9.80 ug/dL Normal 4.80-13.90 [facility] Comment on above: Performed By: #### L IPID, T7, CMP, TSH #### [facility] [address] [address] [address] Carol Ann Rivas GLYCOHEMOGLOBIN A1Con 2021 ADA RECOMMENDATION SEE BELOW Normal [facility] Comment on above: Result Comment: ADA RECOMMENDED LIMIT 4.0 - 6.0 ADA THERAPEUTIC TARGET < 7.0 ACTION SUGGESTED > 7.0 Performed By: #### A 1C #### [facility] [address] [place] [address] Dr. Carol Ann Rivas Glucose [Mass/Vol] 120 mg/dL Normal [facility] Comment on above: Performed By: #### A 1C #### [facility] [address] [address] [address] Carol Ann Rivas HbA1c (Bld) [Mass fraction] 5.8 % Normal 4.5-6.2 [facility] Comment on above: Performed By: #### A 1C #### [facility] [address] [place] [address] Dr. Carol Ann Rivas IRONon 05-06-2022 Iron [Mass/Vol] 56.0 ug/dL Normal 50.0-170.0 [facility] Comment on above: Performed By: #### V ITAD, IRON #### [facility] [address] [address] [address] Carol Ann Rivas LIPID PROFILEon 05-06-2022 CHOL-HDL RATIO NORM SEE BELOW Normal [facility] Comment on above: Result Comment: 3.3 - 4.4 LOW RISK 4.4 - 7.1 AVERAGE RISK 7.1 - 11.0 MODERATE RISK >11.0 HIGH RISK Performed By: #### L IPID, T7, CMP, TSH #### [facility] [address] [place] [address] Dr. Carol Ann Rivas Cholesterol [Mass/Vol] 190 mg/dL Normal <=200 [facility] Comment on above: Performed By: #### L IPID, T7, CMP, TSH #### [facility] [address] [address] [address] Carol Ann Rivas Cholesterol in HDL [Mass/Vol] 58 mg/dL Normal 40-60 [facility] Comment on above: Performed By: #### L IPID, T7, CMP, TSH #### [facility] [address] [address] [address] Carol Ann Rivas Cholesterol in LDL [Mass/Vol] 109.2 mg/dL Normal [facility] Comment on above: Performed By: #### L IPID, T7, CMP, TSH #### [facility] [address] [address] [address] Carol Ann Rivas Cholesterol.total/Cho lesterol in HDL [Mass ratio] 3.3 {ratio} Normal [facility] Comment on above: Performed By: #### L IPID, T7, CMP, TSH #### [facility] [address] [address] [address] Carol Ann Rivas HDL NORMAL > or = 60 mg/dl - LO W CARDIOVASCULAR RISK <40 mg/dl - HIGH CARDIOVASCULAR RISK Normal [facility] Comment on above: Performed By: #### L IPID, T7, CMP, TSH #### [facility] [address] [address] [address] Carol Ann Rivas LDL CALC NORMAL SEE BELOW Normal [facility] Comment on above: Result Comment: <100 mg/dl OPTIMAL 100 - 129 mg/dl NEAR OR ABOVE OPTIMAL 130 - 159 mg/dl BORDERLINE HIGH 160 - 189 mg/dl HIGH >190 mg/dl VERY HIGH Performed By: #### L IPID, T7, CMP, TSH #### [facility] [address] [address] [address] Carol Ann Rivas Triglyceride [Mass/Vol] 114 mg/dL Normal <=150 [facility] Comment on above: Performed By: #### L IPID, T7, CMP, TSH #### [facility] [address] [address] [address] Carol Ann Rivas VLDL CALC 22.8 mg/dL Normal [facility] Comment on above: Performed By: #### L IPID, T7, CMP, TSH #### [facility] [address] [address] [address] Carol Ann Rivas PROF 14(COMP METB)on 022 Albumin [Mass/Vol] 3.4 g/dL Normal 3.4-5.0 [facility] Comment on above: Performed By: #### L IPID, T7, CMP, TSH #### [facility] [address] [address] [address] Carol Ann Rivas Albumin/Globulin [Mass ratio] 0.8 {ratio} Normal [facility] Comment on above: Performed By: #### L IPID, T7, CMP, TSH #### [facility] [address] [place] [address] Dr. Carol Ann Rivas ALP [Catalytic activity/Vol] 88 U/L Normal 46-116 [facility] Comment on above: Performed By: #### L IPID, T7, CMP, TSH #### [facility] [address] [address] [address] Carol Ann Rivas ALT [Catalytic activity/Vol] 21 U/L Normal 14-59 [facility] Comment on above: Performed By: #### L IPID, T7, CMP, TSH #### [facility] [address] [place] [address] Dr. Carol Ann Rivas Anion gap [Moles/Vol] 9.1 mmol/L Normal [facility] Comment on above: Performed By: #### L IPID, T7, CMP, TSH #### [facility] [address] [address] [address] Carol Ann Rivas AST [Catalytic activity/Vol] 13 U/L Critically low 15-37 [facility] Comment on above: Performed By: #### L IPID, T7, CMP, TSH #### [facility] [address] [address] [address] Carol Ann Rivas Bilirubin [Mass/Vol] 0.5 mg/dL Normal 0.2-1.0 [facility] Comment on above: Performed By: #### L IPID, T7, CMP, TSH #### [facility] [address] [address] [address] Carol Ann Rivas Calcium [Mass/Vol] 8.7 mg/dL Normal 8.5-10.1 [facility] Comment on above: Performed By: #### L IPID, T7, CMP, TSH #### [facility] [address] [address] [address] Carol Ann Rivas Chloride [Moles/Vol] 104 mmol/L Normal 98-107 [facility] Comment on above: Performed By: #### L IPID, T7, CMP, TSH #### [facility] [address] [place] [address] Dr. Carol Ann Rivas CO2 [Moles/Vol] 28.9 mmol/L Normal 21.0-32.0 [facility] Comment on above: Performed By: #### L IPID, T7, CMP, TSH #### [facility] [address] [place] [address] Dr. Carol Ann Rivas Creatinine [Mass/Vol] 0.74 mg/dL Normal 0.55-1.02 [facility] Comment on above: Performed By: #### L IPID, T7, CMP, TSH #### [facility] [address] [place] [address] Dr. Carol Ann Rivas EGFR-AF MALAYSIAN >60 Normal >=60 [facility] Comment on above: Performed By: #### L IPID, T7, CMP, TSH #### [facility] [address] [place] [address] Dr. Carol Ann Rivas EGFR-NON AF MALAYSIAN >60 Normal >=60 [facility] Comment on above: Performed By: #### L IPID, T7, CMP, TSH #### [facility] [address] [place] [address] Dr. Carol Ann Rivas Globulin (S) [Mass/Vol] 4.3 g/dL Normal [facility] Comment on above: Performed By: #### L IPID, T7, CMP, TSH #### [facility] [address] [place] [address] Dr. Carol Ann Rivas Glucose [Mass/Vol] 107 mg/dL Critically high 74-106 [facility] Comment on above: Performed By: #### L IPID, T7, CMP, TSH #### [facility] [address] [address] [address] Carol Ann Rivas Potassium [Moles/Vol] 4.0 mmol/L Normal 3.5-5.1 [facility] Comment on above: Performed By: #### L IPID, T7, CMP, TSH #### [facility] [address] [address] [address] Carol Ann Rivas Protein [Mass/Vol] 7.7 g/dL Normal 6.4-8.2 [facility] Comment on above: Performed By: #### L IPID, T7, CMP, TSH #### [facility] [address] [place] [address] Dr. Carol Ann Rivas Sodium [Moles/Vol] 138 mmol/L Normal 136-145 [facility] Comment on above: Performed By: #### L IPID, T7, CMP, TSH #### [facility] [address] [address] [address] Carol Ann Rivas Urea nitrogen [Mass/Vol] 15.0 mg/dL Normal 7.0-18.0 [facility] Comment on above: Performed By: #### L IPID, T7, CMP, TSH #### [facility] [address] [address] [address] Carol Ann Rivas Urea nitrogen/Creatinine [Mass ratio] 20.3 mg/mg Normal [facility] Comment on above: Performed By: #### L IPID, T7, CMP, TSH #### [facility] [address] [address] [address] Carol Ann Rivas TSHon 05-06-2022 TSH 2.519 uIU/mL Normal 0.358-3.740 [facility] Comment on above: Performed By: #### I NSULIN #### [facility] [address] [address] [address] Carol Ann Rivas VITAMIN D 25 OHon 05-06-2022 VIT D 25-OH 30.4 ng/mL Normal [facility] Comment on above: Performed By: #### V DANICA, IRON #### [facility] [address] [place] [address] Dr. Carol Ann Rivas VIT D RANGES SEE BELOW [facility] Comment on above: Result Comment: <20 ng/mL Vit D deficient 20 - <30 ng/mL Vit D insufficient 30 - 100 ng/mL Vit D sufficient >100 ng/mL Potential Toxicity Performed By: #### V DANICA, IRON #### [facility] [address] [place] [address] Dr. Carol Ann Rivas PAP ACOG PANEL 2: 30 to 65on 03-03-2022 . . Normal [facility] Comment on above: Result Comment: Perf ormed at: WB Performed By: #### [id number] #### [facility] [address] [place] [address] Dr. Carol Ann Rivas Age Gdln ACOG Testing 30-65 Normal [facility] Comment on above: Performed By: #### [id number] #### [facility] [address] [place] [address] Dr. Carol Ann Rivas DIAGNOSIS: Comment Normal [facility] Comment on above: Result Comment: NEGA TIVE FOR INTRAEPITHELIAL LESION OR MALIGNANCY. Performed at: WB Performed By: #### [id number] #### [facility] [address] [place] [address] Dr. Carol Ann Rivas HPV Aptima Negative Normal Negative [facility] Comment on above: Result Comment: This nucleic acid amplification test detects fourteen high-risk HPV types (16,18,31,33,35,39,45,51,52,56,58,59,66,68) without differentiation. Performed at: =G Performed By: #### [id number] #### [facility] [address] [place] [address] Dr. Carol Ann Rivas Methodology: Comment Normal [facility] Comment on above: Result Comment: This liquid based ThinPrep(R) pap test was screened with the use of an image guided system. Performed at: WB Performed By: #### [id number] #### [facility] [address] [address] [address] Carol Ann Rivas Note: Comment Normal [facility] Comment on above: Result Comment: The Pap smear is a screening test designed to aid in the detection of premalignant and malignant conditions of the uterine cervix. It is not a diagnostic procedure and should not be used as the sole means of detecting cervical cancer. Both false-positive and false-negative reports do occur. . Performed at: WB Performed By: #### [id number] #### [facility] [address] [address] [address] Carol Ann Rivas Performed by: Comment Normal [facility] Comment on above: Result Comment: Lola Cuadra, Manager Ui (ASCP) Performed at: WB Performed By: #### [id number] #### [facility] [address] [address] [address] Carol Ann Rivas Specimen adequacy: Comment Normal [facility] Comment on above: Result Comment: Sati sfactory for evaluation. Endocervical and/or squamous metaplastic cells (endocervical component) are present. Performed at: WB Performed By: #### [id number] #### [facility] [address] [address] [address] Carol Ann Rivas MG MAMM SCREEN 3D ASHLEY CADon 11-21-2021 MG MAMM SCREEN 3D ASHLEY CAD Patient: SHRADDHA DAN Exam Date: 11/21/2021 : 1970 Gender:F Ordering : DR KAYA ALARCON . Admission #: [id number] Family : Order #: [id number] CLICK HERE TO VIEW EXAM RADIOLOGY REPORT [...] stomach cancer at age 72. LOCATION: [facility] BREAST COMPOSITION: Scattered areas fibroglandular [...] Jaramillo MD on 11/21/2021 at 08:49 Normal [facility] Encounters Encounter Date Encounter Type Care Provider Facility Start: 07-16-2023 End: 07-16-2023 ambulatory KAYA DORIAN Not Available Start: 06-20-2023 ambulatory KAYA DORIAN Not Availa ble Start: 05-28-2023 End: 05-28-2023 ambulatory KAYA DORIAN Not Available Start: 05-11-2022 Encounter for genera l adult medical examination without abnormal findings DR JENNIFER IZAGUIRRE [facility] Start: 05-06-2022 End: 05-07-[address] JENNIFER IZAGUIRRE Facility:[facility] Start: 05-06-2022 End: 05-07-2022 Encounter for general adult medical examination without abnormal findings DR JENNIFER IZAGUIRRE Facility:[facility] Start: 02-24-2022 End: 02-24-[address] JENNIFER IZAGUIRRE Facility:[facility] Start: 11-21-2021 End: 11-22-[address] JENNIFER IZAGUIRRE Facility:[facility] Payers Date Payer Category Payer Unknown [id number] 2.16.84 [id number] 1970 Unknown [id number] 2.16.84 [id number] 1970 Unknown [id number] 2.16.84 [id number] 1970 Unknown [id number] 2.16.84 [id number] 1970 Unknown [id number] 1970 Unknown [id number] 1957 Unknown [id number] Summary Purpose Family History No Family History Records FoundNo Family History Records Found Advance Directives No Advanced Directives Records FoundNo Advanced Directives Records Found Additional Source Comments INFORMATION SOURCE (unrecogn ized section and content) DATE CREATED AUTHOR 05/12/2022 [facility] DATE CREATED AUTHOR AUTHOR'S LAWRENCEIZ ATSHARDA 07/17/2023 [facility] dical Specialists [facility] FOR RECORDS PERTAINING TO PATIENTS WHO [...] BE BASED ON THE PRIMARY CLINICAL RECORDS. [facility] [facility]. provides no warranty or guarantee of the accuracy or completeness of information in this document.
== END 2024-02-25 08:18 | disposition home or self-care (01) ==
LOC: MAMMO 08:17
PROVIDERS: PCP Family Medicine; Visit Provider Obstetrics & Gynecology
DX: Z12.31 Encounter for screening mammogram for malignant neoplasm of breast (principal); Z80.0 Family history of malignant neoplasm of digestive organs; Z80.8 Family history of malignant neoplasm of other organs or systems
CPT/HCPCS: 77063; 77067

== ENCOUNTER 2024-06-16 21:57 | Outpatient (REF) | payer BC, SELFPAY ==
--- OUTSIDE RECORDS SUMMARY | 2024-06-16 22:00 | XMS_ITS | CCD ---
Author Organization [facility] Inform ion [facility] Care Team Providers [employer] Sales Representative Name Role Phone DMITRIY, DR RODRIGUEZ Admitting [...] 05-08-2022 Insulin 14.8 uIU/mL Normal 2.6-24.9 [facility] Comment on above: Performed By: #### I NSULIN #### [facility] [address] [address] [address] Carol Ann Rivas CBC AUTO DIFFon 05-06-2022 BASO # 0.0 103/ul Normal 0.0-0.1 [facility] Comment on above: Performed By: #### C BC #### [facility] [address] [place] [address] Dr. Carol Ann Rivas Basophils/100 WBC (Bld) 0.5 % Normal 0.2-2.0 [facility] Comment on above: Performed By: #### C BC #### [facility] [address] [place] [address] Dr. Carol Ann Rivas EO # 0.2 103/ul Normal 0.0-0.7 [facility] Comment on above: Performed By: #### C BC #### [facility] [address] [place] [address] Dr. Carol Ann Rivas Eosinophils/100 WBC (Bld) 2.2 % Normal 0.9-7.0 [facility] Comment on above: Performed By: #### C BC #### [facility] [address] [place] [address] Dr. Carol Ann Rivas Erythrocyte distribution width (RBC) [Ratio] 14.5 % Normal 11.0-15.0 [facility] Comment on above: Performed By: #### C BC #### [facility] [address] [place] [address] Dr. Carol Ann Rivas Hematocrit (Bld) [Volume fraction] 40.7 % Normal 36.0-48.0 [facility] Comment on above: Performed By: #### C BC #### [facility] [address] [place] [address] Dr. Carol Ann Rivas Hemoglobin (Bld) [Mass/Vol] 13.1 g/dL Normal 12.0-16.0 [facility] Comment on above: Performed By: #### C BC #### [facility] [address] [place] [address] Dr. Carol Ann Rivas IG # 0.02 10e3/ul Normal 0.00-0.03 [facility] Comment on above: Performed By: #### C BC #### [facility] [address] [place] [address] Dr. Carol Ann Rivas IG % 0.3 % Normal 0.0-0.5 [facility] Comment on above: Performed By: #### C BC #### [facility] [address] [place] [address] Dr. Carol Ann Rivas LYMPH # 2.0 103/ul Normal 1.2-3.8 [facility] Comment on above: Performed By: #### C BC #### [facility] [address] [place] [address] Dr. Carol Ann Rivas Lymphocytes/100 WBC (Bld) 25.8 % Normal 20.5-60.0 [facility] Comment on above: Performed By: #### C BC #### [facility] [address] [place] [address] Dr. Carol Ann Rivas MANUAL DIFF REQ NO Normal [facility] Comment on above: Performed By: #### C BC #### [facility] [address] [place] [address] Dr. Carol Ann Rivas MCH (RBC) [Entitic mass] 29.5 pg Normal 26.7-34.0 [facility] Comment on above: Performed By: #### C BC #### [facility] [address] [place] [address] Dr. Carol Ann Rivas MCHC (RBC) [Mass/Vol] 32.2 g/dL Normal 29.9-35.2 [facility] Comment on above: Performed By: #### C BC #### [facility] [address] [place] [address] Dr. Carol Ann Rivas MCV (RBC) [Entitic vol] 91.7 fL Normal 81.0-99.0 [facility] Comment on above: Performed By: #### C BC #### [facility] [address] [place] [address] Dr. Carol Ann Rivas MONO # 0.5 103/ul Normal 0.3-0.8 [facility] Comment on above: Performed By: #### C BC #### [facility] [address] [place] [address] Dr. Carol Ann Rivas Monocytes/100 WBC (Bld) 5.8 % Normal 1.7-12.0 [facility] Comment on above: Performed By: #### C BC #### [facility] [address] [place] [address] Dr. Carol Ann Rivas NEUT # 5.2 103/ul Normal 1.4-6.5 [facility] Comment on above: Performed By: #### C BC #### [facility] [address] [place] [address] Dr. Carol Ann Rivas Neutrophils/100 WBC (Bld) 65.4 % Normal 43.0-75.0 [facility] Comment on above: Performed By: #### C BC #### [facility] [address] [place] [address] Dr. Carol Ann Rivas Platelet mean volume (Bld) [Entitic vol] 10.1 fL Normal 9.5-13.5 [facility] Comment on above: Performed By: #### C BC #### [facility] [address] [place] [address] Dr. Carol Ann Rivas PLT 285 103/ul Normal 150-450 [facility] Comment on above: Performed By: #### C BC #### [facility] [address] [place] [address] Dr. Carol Ann Rivas RBC 4.44 106/ul Normal 4.20-5.40 [facility] Comment on above: Performed By: #### C BC #### [facility] [address] [place] [address] Dr. Carol Ann Rivas WBC 7.9 103/ul Normal 4.0-11.0 [facility] Comment on above: Performed By: #### C BC #### [facility] [address] [place] [address] Dr. Carol Ann Rivas FREE THYROXINE INDEX T7on FTI 3.04 Normal 1.30-4.50 [facility] Comment on above: Performed By: #### L IPID, T7, CMP, TSH #### [facility] [address] [place] [address] Dr. Carol Ann Rivas T3U 31.0 % Normal 30.0-39.0 [facility] Comment on above: Performed By: #### L IPID, T7, CMP, TSH #### [facility] [address] [address] [address] Carol Ann Rivas T4 [Mass/Vol] 9.80 ug/dL Normal 4.80-13.90 [facility] Comment on above: Performed By: #### L IPID, T7, CMP, TSH #### [facility] [address] [address] [address] Carol Ann Rivas GLYCOHEMOGLOBIN A1Con 2021 ADA RECOMMENDATION SEE BELOW Normal [facility] Comment on above: Result Comment: ADA RECOMMENDED LIMIT 4.0 - 6.0 ADA THERAPEUTIC TARGET < 7.0 ACTION SUGGESTED > 7.0 Performed By: #### A 1C #### [facility] [address] [place] [address] Dr. Carol Ann Rivas Glucose [Mass/Vol] 120 mg/dL Normal [facility] Comment on above: Performed By: #### A 1C #### [facility] [address] [address] [address] Carol Ann Rivas HbA1c (Bld) [Mass fraction] 5.8 % Normal 4.5-6.2 [facility] Comment on above: Performed By: #### A 1C #### [facility] [address] [place] [address] Dr. Carol Ann Rivas IRONon 05-06-2022 Iron [Mass/Vol] 56.0 ug/dL Normal 50.0-170.0 [facility] Comment on above: Performed By: #### V ITAD, IRON #### [facility] [address] [address] [address] Carol Ann Rivas LIPID PROFILEon 05-06-2022 CHOL-HDL RATIO NORM SEE BELOW Normal [facility] Comment on above: Result Comment: 3.3 - 4.4 LOW RISK 4.4 - 7.1 AVERAGE RISK 7.1 - 11.0 MODERATE RISK >11.0 HIGH RISK Performed By: #### L IPID, T7, CMP, TSH #### [facility] [address] [place] [address] Dr. Carol Ann Rivas Cholesterol [Mass/Vol] 190 mg/dL Normal <=200 [facility] Comment on above: Performed By: #### L IPID, T7, CMP, TSH #### [facility] [address] [address] [address] Carol Ann Rivas Cholesterol in HDL [Mass/Vol] 58 mg/dL Normal 40-60 [facility] Comment on above: Performed By: #### L IPID, T7, CMP, TSH #### [facility] [address] [address] [address] Carol Ann Rivas Cholesterol in LDL [Mass/Vol] 109.2 mg/dL Normal [facility] Comment on above: Performed By: #### L IPID, T7, CMP, TSH #### [facility] [address] [address] [address] Carol Ann Rivas Cholesterol.total/Cho lesterol in HDL [Mass ratio] 3.3 {ratio} Normal [facility] Comment on above: Performed By: #### L IPID, T7, CMP, TSH #### [facility] [address] [address] [address] Carol Ann Rivas HDL NORMAL > or = 60 mg/dl - LO W CARDIOVASCULAR RISK <40 mg/dl - HIGH CARDIOVASCULAR RISK Normal [facility] Comment on above: Performed By: #### L IPID, T7, CMP, TSH #### [facility] [address] [address] [address] Carol Ann Rivas LDL CALC NORMAL SEE BELOW Normal [facility] Comment on above: Result Comment: <100 mg/dl OPTIMAL 100 - 129 mg/dl NEAR OR ABOVE OPTIMAL 130 - 159 mg/dl BORDERLINE HIGH 160 - 189 mg/dl HIGH >190 mg/dl VERY HIGH Performed By: #### L IPID, T7, CMP, TSH #### [facility] [address] [address] [address] Carol Ann Rivas Triglyceride [Mass/Vol] 114 mg/dL Normal <=150 [facility] Comment on above: Performed By: #### L IPID, T7, CMP, TSH #### [facility] [address] [address] [address] Carol Ann Rivas VLDL CALC 22.8 mg/dL Normal [facility] Comment on above: Performed By: #### L IPID, T7, CMP, TSH #### [facility] [address] [address] [address] Carol Ann Rivas PROF 14(COMP METB)on 022 Albumin [Mass/Vol] 3.4 g/dL Normal 3.4-5.0 [facility] Comment on above: Performed By: #### L IPID, T7, CMP, TSH #### [facility] [address] [address] [address] Carol Ann Rivas Albumin/Globulin [Mass ratio] 0.8 {ratio} Normal [facility] Comment on above: Performed By: #### L IPID, T7, CMP, TSH #### [facility] [address] [place] [address] Dr. Carol Ann Rivas ALP [Catalytic activity/Vol] 88 U/L Normal 46-116 [facility] Comment on above: Performed By: #### L IPID, T7, CMP, TSH #### [facility] [address] [address] [address] Carol Ann Rivas ALT [Catalytic activity/Vol] 21 U/L Normal 14-59 [facility] Comment on above: Performed By: #### L IPID, T7, CMP, TSH #### [facility] [address] [place] [address] Dr. Carol Ann Rivas Anion gap [Moles/Vol] 9.1 mmol/L Normal [facility] Comment on above: Performed By: #### L IPID, T7, CMP, TSH #### [facility] [address] [address] [address] Carol Ann Rivas AST [Catalytic activity/Vol] 13 U/L Critically low 15-37 [facility] Comment on above: Performed By: #### L IPID, T7, CMP, TSH #### [facility] [address] [address] [address] Carol Ann Rivas Bilirubin [Mass/Vol] 0.5 mg/dL Normal 0.2-1.0 [facility] Comment on above: Performed By: #### L IPID, T7, CMP, TSH #### [facility] [address] [address] [address] Carol Ann Rivas Calcium [Mass/Vol] 8.7 mg/dL Normal 8.5-10.1 [facility] Comment on above: Performed By: #### L IPID, T7, CMP, TSH #### [facility] [address] [address] [address] Carol Ann Rivas Chloride [Moles/Vol] 104 mmol/L Normal 98-107 [facility] Comment on above: Performed By: #### L IPID, T7, CMP, TSH #### [facility] [address] [place] [address] Dr. Carol Ann Rivas CO2 [Moles/Vol] 28.9 mmol/L Normal 21.0-32.0 [facility] Comment on above: Performed By: #### L IPID, T7, CMP, TSH #### [facility] [address] [place] [address] Dr. Carol Ann Rivas Creatinine [Mass/Vol] 0.74 mg/dL Normal 0.55-1.02 [facility] Comment on above: Performed By: #### L IPID, T7, CMP, TSH #### [facility] [address] [place] [address] Dr. Carol Ann Rivas EGFR-AF ROMANIAN >60 Normal >=60 [facility] Comment on above: Performed By: #### L IPID, T7, CMP, TSH #### [facility] [address] [place] [address] Dr. Carol Ann Rivas EGFR-NON AF ROMANIAN >60 Normal >=60 [facility] Comment on above: Performed By: #### L IPID, T7, CMP, TSH #### [facility] [address] [place] [address] Dr. Carol Ann Rivas Globulin (S) [Mass/Vol] 4.3 g/dL Normal [facility] Comment on above: Performed By: #### L IPID, T7, CMP, TSH #### [facility] [address] [place] [address] Dr. Carol Ann Rivas Glucose [Mass/Vol] 107 mg/dL Critically high 74-106 T [facility] Comment on above: Performed By: #### L IPID, T7, CMP, TSH #### [facility] [address] [address] [address] Carol Ann Rivas Potassium [Moles/Vol] 4.0 mmol/L Normal 3.5-5.1 [facility] Comment on above: Performed By: #### L IPID, T7, CMP, TSH #### [facility] [address] [address] [address] Carol Ann Rivas Protein [Mass/Vol] 7.7 g/dL Normal 6.4-8.2 [facility] Comment on above: Performed By: #### L IPID, T7, CMP, TSH #### [facility] [address] [place] [address] Dr. Carol Ann Rivas Sodium [Moles/Vol] 138 mmol/L Normal 136-145 [facility] Comment on above: Performed By: #### L IPID, T7, CMP, TSH #### [facility] [address] [address] [address] Carol Ann Rivas Urea nitrogen [Mass/Vol] 15.0 mg/dL Normal 7.0-18.0 [facility] Comment on above: Performed By: #### L IPID, T7, CMP, TSH #### [facility] [address] [address] [address] Carol Ann Rivas Urea nitrogen/Creatinine [Mass ratio] 20.3 mg/mg Normal [facility] Comment on above: Performed By: #### L IPID, T7, CMP, TSH #### [facility] [address] [address] [address] Carol Ann Rivas TSHon 05-06-2022 TSH 2.519 uIU/mL Normal 0.358-3.740 [facility] Comment on above: Performed By: #### I NSULIN #### [facility] [address] [address] [address] Carol Ann Rivas VITAMIN D 25 OHon 05-06-2022 VIT D 25-OH 30.4 ng/mL Normal [facility] Comment on above: Performed By: #### V DANICA, IRON #### [facility] [address] [place] [address] Dr. Carol Ann Rivas VIT D RANGES SEE BELOW [facility] Comment on above: Result Comment: <20 ng/mL Vit D deficient 20 - <30 ng/mL Vit D insufficient 30 - 100 ng/mL Vit D sufficient >100 ng/mL Potential Toxicity Performed By: #### V DANICA, IRON #### [facility] [address] [place] [address] Dr. Carol Ann Rivas PAP ACOG PANEL 2: 30 to 65on 03-03-2022 . . Normal [facility] Comment on above: Result Comment: Perf ormed at: WB Performed By: #### [id number] #### [facility] [address] [place] [address] Dr. Carol Ann Rivas Age Gdln ACOG Testing 30-65 Normal [facility] Comment on above: Performed By: #### [id number] #### [facility] [address] [place] [address] Dr. Carol Ann Rivas DIAGNOSIS: Comment Normal [facility] Comment on above: Result Comment: NEGA TIVE FOR INTRAEPITHELIAL LESION OR MALIGNANCY. Performed at: WB Performed By: #### [id number] #### [facility] [address] [place] [address] Dr. Carol Ann Rivas HPV Aptima Negative Normal Negative [facility] Comment on above: Result Comment: This nucleic acid amplification test detects fourteen high-risk HPV types (16,18,31,33,35,39,45,51,52,56,58,59,66,68) without differentiation. Performed at: =G Performed By: #### [id number] #### [facility] [address] [place] [address] Dr. Carol Ann Rivas Methodology: Comment Normal [facility] Comment on above: Result Comment: This liquid based ThinPrep(R) pap test was screened with the use of an image guided system. Performed at: WB Performed By: #### [id number] #### [facility] [address] [address] [address] Carol Ann Rivas Note: Comment Normal [facility] Comment on above: Result Comment: The Pap smear is a screening test designed to aid in the detection of premalignant and malignant conditions of the uterine cervix. It is not a diagnostic procedure and should not be used as the sole means of detecting cervical cancer. Both false-positive and false-negative reports do occur. . Performed at: WB Performed By: #### [id number] #### [facility] [address] [address] [address] Carol Ann Rivas Performed by: Comment Normal [facility] Comment on above: Result Comment: Lola Cuadra, Offender Employment Specialist (ASCP) Performed at: WB Performed By: #### [id number] #### [facility] [address] [address] [address] Carol Ann Rivas Specimen adequacy: Comment Normal [facility] Comment on above: Result Comment: Sati sfactory for evaluation. Endocervical and/or squamous metaplastic cells (endocervical component) are present. Performed at: WB Performed By: #### [id number] #### [facility] [address] [address] [address] Carol Ann Rivas MG MAMM SCREEN 3D ASHLEY CADon 11-21-2021 MG MAMM SCREEN 3D ASHLEY CAD Patient: SHRADDHA DAN Exam Date: 11/21/2021 : 1970 Gender:F Ordering : DR KAYA ALARCON . Admission #: [id number] Family : Order #: [id number] CLICK HERE TO VIEW EXAM RADIOLOGY REPORT [...] stomach cancer at age 72. LOCATION: [facility] BREAST COMPOSITION: [...] Jaramillo MD on 11/21/2021 at 08:49 Normal [facility] Encounters Encounter Date Encounter Type Care Provider Facility Start: 07-16-2023 End: 07-16-2023 ambulatory KAYA DORIAN Not Available Start: 06-20-2023 ambulatory KAYA DORIAN Not Availa ble Start: 05-28-2023 End: 05-28-2023 ambulatory KAYA DORIAN Not Available Start: 05-11-2022 Encounter for genera l adult medical examination without abnormal findings DR JENNIFER IZAGUIRRE [facility] Start: 05-06-2022 End: 05-07-[address] JENNIFER IZAGUIRRE Facility:[facility] Start: 05-06-2022 End: 05-07-2022 Encounter for general adult medical examination without abnormal findings DR JENNIFER IZAGUIRRE Facility:[facility] Start: 02-24-2022 End: 02-24-[address] JENNIFER IZAGUIRRE Facility:[facility] Start: 11-21-2021 End: 11-22-[address] JENNIFER IZAGUIRRE Facility:[facility] Payers Date Payer Category Payer Unknown [id number] [id number] [id number] 1970 Unknown [id number] [id number] [id number] 1970 Unknown [id number] 2.16.84 [id number] 1970 Unknown [id number] 2.16.84 [id number] 1970 Unknown [id number] 1970 Unknown [id number] 1957 Unknown [id number] Summary Purpose Family History No Family History Records FoundNo Family History Records Found Advance Directives No Advanced Directives Records FoundNo Advanced Directives Records Found Additional Source Comments INFORMATION SOURCE (unrecogn ized section and content) DATE CREATED AUTHOR 05/12/2022 [facility] DATE CREATED AUTHOR AUTHOR'S LAWRENCEIZ ATSHARDA 07/17/2023 [facility] FOR RECORDS PERTAINING TO PATIENTS WHO [...] BE BASED ON THE PRIMARY CLINICAL RECORDS. [facility] [employer] [facility]. provides no warranty or guarantee of the accuracy or completeness of information in this document.
== END 2024-06-16 21:58 | disposition home or self-care (01) ==
LOC: LAB 21:57
PROVIDERS: PCP Family Medicine; Visit Provider Obstetrics & Gynecology
DX: Z01.419 Encounter for gynecological examination (general) (routine) without abnormal findings (principal)
CPT/HCPCS: 87624; 88175

== ENCOUNTER 2024-07-05 08:02 | Outpatient (OUT) | payer BC, SELFPAY ==
[2024-07-05 08:24] LABS: Basophils Percent Auto 0.3 % (0.2-2.0); Eosinophils Percent Auto 0.3 % (0.9-7.0); Hematocrit 41.7 % (36.0-48.0); Hemoglobin 13.8 g/dL (12.0-16.0); Immature Granulocytes Abs Auto 0.01 10^3/uL (0.00-0.03); Immature Granulocytes Pct Auto 0.1 % (0.0-0.5); Lymphocytes Absolute Auto 1.8 10^3/uL (1.2-3.8); Lymphocytes Percent Auto 25.6 % (20.5-60.0); Mean Corpuscular HGB Conc 33.1 g/dL (29.9-35.2); Mean Corpuscular Hemoglobin 30.5 pg (26.7-34.0); Mean Corpuscular Volume 92.3 fL (81.0-99.0); Monocytes Absolute Auto 0.6 10^3/uL (0.3-0.8); Monocytes Percent Auto 8.9 % (1.7-12.0); Neutrophils Absolute Auto 4.7 10^3/uL (1.4-6.5); Neutrophils Percent Auto 64.8 % (43.0-75.0); Platelet Count 280 10^3/uL (150-450); Red Blood Count 4.52 10^6/uL (4.20-5.40); Red Cell Distribution Width 14.4 % (11.0-15.0); White Blood Count 7.2 10^3/uL (4.0-11.0)
[2024-07-05 08:31] LABS: Estimated Average Glucose 134 mg/dL; Glycohemoglobin A1C 6.3 % (4.5-6.2)
[2024-07-05 09:15] LABS: Alanine Aminotransferase 23 U/L (14-59); Albumin Globulin Ratio 0.9; Albumin Level 3.4 g/dL (3.4-5.0); Alkaline Phosphatase 87 U/L (46-116); Anion Gap 10.8; Aspartate Amino Transferase 13 U/L (15-37); BUN Creatinine Ratio 15.8; Bilirubin Total 0.6 mg/dL (0.2-1.0); Calcium 8.9 mg/dL (8.5-10.1); Chloride 104 mmol/L (98-107); Chol HDL Ratio 4.5; Cholesterol 232 mg/dL (<=200); Estimated GFR (African America >60 (>=60 mL/min/1.73m^2); Estimated GFR (Non-African Ame 58 (>=60 mL/min/1.73m^2); Glucose 149 mg/dL (74-106); HDL Cholesterol 51 mg/dL (40-60); Potassium 3.8 mmol/L (3.5-5.1); Sodium 143 mmol/L (136-145); Thyroid Stimulating Hormone 3.534 uIU/mL (0.358-3.740); Total Protein 7.4 g/dL (6.4-8.2); Triglycerides 158 mg/dL (<=150); VLDL CHOLESTEROL 31.6 mg/dL
[2024-07-06 12:07] LABS: Insulin 17.4 uIU/mL (2.6-24.9)
== END 2024-07-05 08:03 | disposition home or self-care (01) ==
LOC: LAB 08:03
PROVIDERS: PCP Family Medicine; Visit Provider Family Medicine
DX: Z00.00 Encounter for general adult medical examination without abnormal findings (principal)
CPT/HCPCS: 36415; 80053; 80061; 83036; 83525; 84436; 84443; 84481; 85025

== ENCOUNTER 2024-10-21 09:42 | Outpatient (OUT) | payer BC, SELFPAY ==
[2024-10-21 10:12] LABS: Estimated Average Glucose 126 mg/dL
[2024-10-21 10:20] LABS: Alanine Aminotransferase 36 U/L (14-59); Albumin Globulin Ratio 0.9; Albumin Level 3.4 g/dL (3.4-5.0); Alkaline Phosphatase 86 U/L (46-116); Aspartate Amino Transferase 24 U/L (15-37); Bilirubin Direct 0.1 mg/dL (0.0-0.2); Bilirubin Total 0.5 mg/dL (0.2-1.0); Chol HDL Ratio 2.8; Cholesterol 151 mg/dL (<=200); Globulin 3.6 g/dL; HDL Cholesterol 53 mg/dL (40-60); LDL Cholesterol Calculated 74.4 mg/dL; Triglycerides 118 mg/dL (<=150); VLDL CHOLESTEROL 23.6 mg/dL
== END 2024-10-21 09:43 | disposition home or self-care (01) ==
LOC: LAB 09:44
PROVIDERS: PCP Family Medicine; Visit Provider Family Medicine
DX: E78.5 Hyperlipidemia, unspecified (principal); R73.09 Other abnormal glucose
CPT/HCPCS: 36415; 80061; 80076; 83036

== ENCOUNTER 2025-03-03 10:53 | Outpatient (OUT) | payer BC, SELFPAY ==
--- NOTE | 2025-03-03 11:02 | MM_ITS ---
Patient Name: SHRADDHA DAN MR#: [id number] : 1970 Exam Date: 03/03/2025 Ordering Doctor: DR KAYA ALARCON . RADIOLOGY REPORT PROCEDURE: MM TOMOSYNTHESIS SCREENING BI COMPARISON: MM TOMOSYNTHESIS SCREENING BI, 02/25/2024. MM TOMOSYNTHESIS SCREENING BI, 02/23/2023. MG MAMM SCREEN 3D ASHLEY CAD, 11/21/2021. MG MAMM SCREEN ASHLEY W CAD, 01/03/2018. INDICATIONS: Screening Calculator Name NCI Breast Cancer Risk Assessment Tool 5 Year Breast Cancer Risk 1.00% Lifetime Breast Cancer Risk 8.50% Personal Breast Cancer No Personal Ovarian Cancer No Treatments None Family Cancers Grandfather-maternal with pancreas cancer at age ~75; Father with colon cancer at age 74; Grandmother-maternal with stomach cancer at age ~70. LOCATION: [facility] BREAST COMPOSITION: There are scattered areas of fibroglandular density. FINDINGS: DIAGNOSTIC CATEGORY 1--NEGATIVE. RIGHT BREAST: No significant suspicious finding. LEFT BREAST: No significant suspicious finding. RECOMMENDATIONS: ROUTINE MAMMOGRAM AND CLINICAL EVALUATION IN 12 MONTHS. Dictated by: Luis A Kennedy DO on 03/03/2025 at 14:46 Approved by: Luis A Kennedy DO on 03/03/2025 at 14:48
== END 2025-03-03 10:54 | disposition home or self-care (01) ==
LOC: MAMMO 10:53
PROVIDERS: PCP Family Medicine; Visit Provider Obstetrics & Gynecology
DX: Z12.31 Encounter for screening mammogram for malignant neoplasm of breast (principal); Z80.0 Family history of malignant neoplasm of digestive organs; Z80.8 Family history of malignant neoplasm of other organs or systems
CPT/HCPCS: 77063; 77067

== ENCOUNTER 2025-06-23 20:04 | Outpatient (REF) | payer BC, SELFPAY ==
--- OUTSIDE RECORDS SUMMARY | 2025-06-23 10:30 | XMS_ITS | Encounter Summary ---
Author Organization [facility] Address [address] [place] [address] Care Team Providers Care Shorts Sifter Name Role Phone Sunny Joya MD Primary Care Provider [phone] Reason for Visit * ReasonCommentsWell Women Visit Encounter Details DateTypeDepartmentCare Team (Latest Contact Info)Irjiqjqohpe65/23/2025 10:30 AM ESTOffice Visit [facility] [address] [place] [phone] Diogo Ervin DO [address] [place], [place] [id number] Well woman exam with routine gynecological exam; Breast cancer screening by mammogram; Postmenopausal state Social History Tobacco UseTypesPacks/DayYears UsedDateSmoking Tobacco: NeverAlcohol UseStandard Drinks/WeekCommentsNever0 (1 standard drink = 0.6 oz pure alcohol) CommentsNoSex and Gender InformationValueDate RecordedSex Assigned at Bimzpv5105/21/2023 3:25 PM ESTLegal NokGlsssn87/15/2023 11:47 PM EDTGender NsuuyjmxLhbcii94/20/2023 3:25 PM ESTSexual OrientationNot on filedocumented as of this encounter Last Filed Vital Signs Vital SignReadingTime TakenCommentsBlood Vpfkzqtz159/7006/23/2025 10:52 AM EST Pulse--Temperature--Respiratory Rate--Oxygen Saturation--Inhaled Oxygen Concentration--Hjonub631 kg (301 lb 6.4 oz)06/23/2025 10:52 AM ESTHeight--Body Mass Index45.8311 9:29 AM ESTdocumented in this encounter Progress Notes * Mare NegroOLI - 06/23/2025 10:30 AM EST Reason for Appointment: Patient ID: Aleta Sierra is a 54 y.o. female who presents for Well Women Visit Patient presents today for Annual Exam. MEDICATIONS Current Outpatient Medications Medication Instructions ascorbic acid (VITAMIN C) 500 mg, Daily calcium carbonate 1,500 mg, Every 24 hours cholecalciferol (Vitamin D-3) 25 MCG (1000 UT) capsule 1 capsule, Every 24 hours cyanocobalamin (VITAMIN B-12) 1,000 mcg, Every 24 hours ferrous sulfate 325 mg, Daily with breakfast magnesium 250 MG tablet pantoprazole (PROTONIX) 40 mg, Daily before breakfast simvastatin (ZOCOR) 20 mg, Nightly zinc, chelated 22 mg, Daily RT ALLERGIES No Known Allergies PROBLEMS Active Ambulatory Problems Diagnosis Date Noted No Active Ambulatory Problems Resolved Ambulatory Problems Diagnosis Date Noted No Resolved Ambulatory Problems Past Medical History: Diagnosis Date Acid reflux Sleep apnea HISTORY PAST MEDICAL HISTORY SOCIAL HISTORY Past Medical History: Diagnosis Date Acid reflux Sleep apnea Social History Tobacco Use Smoking status: Never Smokeless tobacco: Not on file Substance Use Topics Alcohol use: Never Drug use: Not on file FAMILY HISTORY Family History Problem Relation Name Age of Onset Heart disease Mother Heart disease Sibling Hypertension Sibling SURGICAL HISTORY Past Surgical History: Procedure Laterality Date SECTION, LOW TRANSVERSE 08/31/1999 REVIEW OF SYSTEMS Review of Systems: Review of Systems Constitutional: Negative. HENT: Negative. Eyes: Negative. Respiratory: Negative. Cardiovascular: Negative. Gastrointestinal: Negative. Genitourinary: Negative. Musculoskeletal: Negative. Skin: Negative. Neurological: Negative. All other systems reviewed and are negative. Hematological: Negative. Endocrine: Negative. Allergic/Immunologic: Negative. OBJECTIVE Objective: Physical Exam Constitutional: Appearance: Normal appearance. She is well-developed. Genitourinary: Vulva normal. Cardiovascular: Rate and Rhythm: Normal rate and regular rhythm. Pulmonary: Effort: Pulmonary effort is normal. Breath sounds: Normal breath sounds. Abdominal: General: Bowel sounds are normal. There is no distension. Palpations: Abdomen is soft. Tenderness: There is no abdominal tenderness. There is no guarding or rebound. Musculoskeletal: General: No swelling. Normal range of motion. Right lower leg: No edema. Left lower leg: No edema. Neurological: Mental Status: She is alert and oriented to person, place, and time. Skin: General: Skin is warm and dry. Psychiatric: Mood and Affect: Mood normal. Behavior: Behavior normal. Vitals and nursing note reviewed. Exam conducted with a nnp present. Vitals: Estimated body mass index is 45.83 kg/m?? as calculated from the following: Height as of 05/28/23: 5' 8 . Weight as of this encounter: 301 lb 6.4 oz. BP: 100/70 No LMP recorded. Patient is postmenopausal. ASSESSMENT & PLAN ICD-10-CM 1. Well woman exam with routine gynecological exam Z01.419 THIN PREP TIS PAP AND HR HPV DNA 2. Breast cancer screening by mammogram Z12.31 Bilateral screening mammogram Bilateral screening mammogram 3. Postmenopausal state Z78.0 DEXA bone density Orders Placed This Encounter Procedures Bilateral screening mammogram DEXA bone density Annual Wellness Exam: Patient presents today for routine annual exam. Patient states she has complaints of vaginal itching at times. Patients vitals were reviewed and within normal limits. Growth and development is noted to be appropriate for age. No mental health concerns was expressed. Pap Smear: Speculum was inserted into the vagina and pap was obtained without difficulty. HPV testing was performed per age guideline. Patient was advised that pap results could take anywhere from 7 to 10 days to receive and our office will reach out to the patient with those once we have them. Patient can also view results via [employer]. I reinforced importance of condom use for STI prevention. Patient declined cultures to be performed with today's visit. Breast Exam: Upon examination, clinical breast exam was noted to be normal and screening mammogram was ordered and given to patient to have obtained. Patient was counseled on breast self-awareness, including the importance of knowing what is normal for her own breasts and promptly reporting any changes such as new lumps, skin dimpling, nipple discharge, or pain. Screening mammogram was recommended annually. Discussed signs and symptoms of breast cancer and when to seek medical attention. Answered all patient questions. DEXA Counseling: DEXA scan ordered and given to the patient to have performed for osteoporosis screening per guidelines. Patient counseled on bone health, including the importance of calcium and vitamin D intake, weight-bearing exercise, fall prevention, and avoiding tobacco and excessive alcohol. Discussed purposeof DEXA in assessing fracture risk and monitoring bone density. Patient advised results will be reviewed upon completion and next steps discussed as needed. Follow Up: Patient is to return to our office in one year for annual exam unless needed otherwise. Documented by Mare Negro LPN on behalf of: Diogo Ervin DO documented in this encounter Plan of Treatment DateTypeDepartmentCare Team (Latest Contact Info)Ieqtpxveczj64/11/2027 3:00 PM ESTProcedure Visit [facility] [address] [address] Diogo Ervin DO [address] [place] [address] NameTypePriorityAssociated DiagnosesOrder ScheduleBilateral screening mammogram ImagingRoutine Breast cancer screening by mammogram Expected: 06/23/2025, Expires: 08/24/2026DEXA bone densityImagingRoutine Postmenopausal state Expected: 06/23/2025 (Approximate), Expires: 06/23/2026THIN PREP TIS PAP AND HR HPV DNAPathology and CytologyRoutine Well woman exam with routine gynecological exam Ordered: 06/23/2025documented as of this encounter Visit Diagnoses Diagnosis Well woman exam with routine gynecological exam Routine gynecological examination Breast cancer screening by mammogram Postmenopausal state Asymptomatic postmenopausal status (age-related) (natural) documented in this encounter Care Teams Team MemberRelationshipSpecialtyStart DateEnd Date Sunny Joya MD [address] [facility] [place] [address] PCP - GeneralFamily Qwgwvluc74/16/24documented as of this encounter
--- OUTSIDE RECORDS SUMMARY | 2025-06-23 20:09 | XMS_ITS | Encounter Summary ---
Author Organization [facility] Address [address] [place] [address] Care Team Providers Care Transportation Operations Manager Name Role Phone Sunny Joya MD Primary Care Provider [phone] Encounter Details DateTypeDepartmentCare Team (Latest Contact Info)Gzqwfxuokps32/23/2025amboo flowsheet [facility] [address] [place] [address] Diogo Ervin DO [address], [place] [address] Social History Tobacco UseTypesPacks/DayYears UsedDateSmoking Tobacco: NeverAlcohol UseStandard Drinks/WeekCommentsNever0 (1 standard drink = 0.6 oz pure alcohol) CommentsNoSex and Gender InformationValueDate RecordedSex Assigned at Kpdsql0905/21/2023 3:25 PM ESTLegal OhkOizoyr66/15/2023 11:47 PM EDTGender NqoqgqrhMjpqok39/20/2023 3:25 PM ESTSexual OrientationNot on filedocumented as of this encounter Plan of Treatment DateTypeDepartmentCare Team (Latest Contact Info)Pavtkpmybgn92/11/2027 3:00 PM ESTProcedure Visit [facility] [address] [place] [address] Diogo Ervin, DO [address], [facility]11 documented as of this encounter Visit Diagnoses Not on filedocumented in this encounter Care Teams Team MemberRelationshipSpecialtyStart DateEnd Date Sunny Joya MD [address] [place] [address] PCP - GeneralFamily Rajyidee25/16/24documented as of this encounter
--- OUTSIDE RECORDS SUMMARY | 2025-06-23 20:09 | XMS_ITS | Clinical Summary ---
Author Organization [facility] Address [address] [place] [address] Care Team Providers Care Wine Master Name Role Phone Sunny Joya MD Primary Care Provider [phone] Allergies No known active allergies Medications MedicationSigDispense QuantityRefillsLast FilledStart DateEnd DateStatus zinc, chelated 12.5 mg tablet split tablet Take 22 mg by mouth in the morning.Active ferrous sulfate 325 (65 Fe) MG tablet Take 325 mg by mouth in the morning. Take with meals.Active cyanocobalamin (Vitamin B-12) 1000 MCG tablet Take 1,000 mcg by mouth 1 (one) time each day at the same time.Active cholecalciferol (Vitamin D-3) 25 MCG (1000 UT) capsule Take 1 capsule by mouth 1 (one) time each day at the same time.Active calcium carbonate 1500 (600 Ca) MG tablet Take 1,500 mg by mouth 1 (one) time each day at the same time.Active ascorbic acid (Vitamin C) 500 MG chewable tablet Chew 500 mg in the morning.Active pantoprazole (ProtoNix) 40 MG EC tablet Take 40 mg by mouth in the morning. Take before meals.Active magnesium 250 MG tablet Active simvastatin (Zocor) 20 MG tablet Take 20 mg by mouth at bedtimeActive Encounters DateTypeDepartmentCare QjniNyseyeilzxg93/23/2025 10:30 AM ESTOffice Visit [facility] [address] [place] [address] [place] [phone] Diogo Ervin, DO Well woman exam with routine gynecological exam; Breast cancer screening by mammogram; Postmenopausal state06/23/2025amboo flowsheet [facility] [address] [place] [address] Diogo Ervin DO from Last 3 Months Family History Medical HistoryRelationNameCommentsHeart diseaseMotherHeart diseaseSibling HypertensionSiblingRelationNameStatusCommentsFatherDeceasedMotherDeceasedSibling Social History Tobacco UseTypesPacks/DayYears UsedDateSmoking Tobacco: Never Tobacco Cessation:Counseling Given: Not Answered Alcohol UseStandard Drinks/WeekCommentsNever0 (1 standard drink = 0.6 oz pure alcohol)CommentsNoSex and Gender InformationValueDate RecordedSex Assigned at RqnwiTodeme06/20/2023 3:25 PM ESTLegal UriFrjlpw39/15/2023 11:47 PM EDTGender OjhcnjngFljfhw54/20/2023 3:25 PM ESTSexual OrientationNot on file Last Filed Vital Signs Vital SignReadingTime TakenCommentsBlood Iwfkacwi423/7006/23/2025 10:52 AM EST Pulse--Temperature--Respiratory Rate--Oxygen Saturation--Inhaled Oxygen Concentration--Buqmit002 kg (301 lb 6.4 oz)06/23/2025 10:52 AM QHODimmxt893.7 cm (5' 8 )05/28/2023 9:29 AM ESTBody Mass Index45.8305/28/2023 9:29 AM EST Plan of Treatment DateTypeDepartmentCare Team (Latest Contact Info)Xkucylelxnk25/11/2027 3:00 PM ESTProcedure Visit [facility] [address] [place] [address] Diogo Ervin DO [address] [place] [address] Insurance Care Teams Team MemberRelationshipSpecialtyStart DateEnd Date Sunny Joya MD [address] [place] [address] PCP - GeneralFamily Ifstqwcs80/16/24
--- OUTSIDE RECORDS SUMMARY | 2025-06-23 20:09 | XMS_ITS | Patient Health Record ---
Author Organization [facility] [place] Address [address] [place] [address] Care Team Providers Care Property And Equipment Clerk Name Role Phone Israel Joya Primary Care Provider Allergies No Known Allergies Results Component Value Reference Range Notes CBC AUTO DIFF Reviewed date:07/06/2024 08:56:56 PM Interpretation: Performing Lab: Notes/Report: [facility] , White Blood Count 7.2 4.0-11.0 10 3/uL Red Blood Count4.524.20-5.40 10 6/pWPzbcabxgib03.812.0-16.0 g/gYOmmmdvudnb83.7 36.0-48.0 %Mean Corpuscular Gvesku25.381.0-99.0 fLMean Corpuscular Hemoglobin 30.526.7-34.0 pgMean Corpuscular HGB Conc33.129.9-35.2 g/dLRed Cell Distribution Width14.411.0-15.0 %Platelet Gypdk454887-122 10 3/uLMean Platelet Sgujzb89.09.5- 13.5 fLNeutrophils Percent Auto64.843.0-75.0 %Lymphocytes Percent Auto25.620.5- 60.0 %Monocytes Percent Auto8.91.7-12.0 %Eosinophils Percent Auto0.30.9-7.0 % Basophils Percent Auto0.30.2-2.0 %Immature Granulocytes Pct Auto0.10.0-0.5 % Neutrophils Absolute Auto4.71.4-6.5 10 3/uLLymphocytes Absolute Auto1.81.2-3.8 10 3/uLMonocytes Absolute Auto0.60.3-0.8 10 3/uLEosinophils Absolute Auto0.00.0- 0.7 10 3/uLBasophils Absolute Auto0.00.0-0.1 10 3/uLImmature Granulocytes Abs Auto0.010.00-0.03 10 3/uLPerforming Lab:see note - [facility] LB GLYCOHEMOGLOBIN A1C Reviewed date:07/06/2024 08:56:56 PM Interpretation: Performing Lab: Notes/Report: [facility] ,Glycohemoglobin A1C6.34.5-6.2 % ADA RECOMMENDED LIMIT 4.0 - 6.0 ADA THERAPEUTIC TARGET < 7.0 ACTION SUGGESTED > 7.0 Estimated Average Bvygrbc879Ooffbbnpok Lab:[facility] GLYCOHEMOGLOBIN A1C Reviewed date:10/21/2024 02:29:25 PM Interpretation: Performing Lab: Notes/Report: [facility] ,Glycohemoglobin A1C6.04.5-6.2 % ADA RECOMMENDED LIMIT 4.0 - 6.0 ADA THERAPEUTIC TARGET < 7.0 ACTION SUGGESTED > 7.0 Estimated Average Ekouxze842Uadpwyecty Lab:[facility] LB LIPID PROFILE Reviewed date:10/21/2024 02:29:25 PM Interpretation: Performing Lab: Notes/Report: [facility] ,Cacbganiryzer743<=150 mg/uVDchoaowiwvf308<=200 mg/dLHDL Uolvemhlwke6122-64 mg/dL > or =60 mg/dl - LOW CARDIOVASCULAR RISK <40 mg/dl - HIGH CARDIOVASCULAR RISK LDL Cholesterol Uxmqoyljyg24.4 <100 mg/dl OPTIMAL 100-129 mg/dl NEAR OR ABOVE OPTIMAL 130-159 mg/dl BORDERLINE HIGH 160-189 mg/dl HIGH >190 mg/dl VERY HIGH VLDL BLVQLUZLQKF11.6Chol HDL Ratio2.8 3.3 - 4.4 LOW RISK 4.4 - 7.1 AVERAGE RISK 7.1 - 11.0 MODERATE RISK >11.0 HIGH RISK Performing Lab:[facility]Hol[facility] LBLIVER PROFILE Reviewed date:10/21/2024 02:29:25 PM Interpretation: Performing Lab: Notes/Report: [facility] ,Bilirubin Total0.50.2-1.0 mg/dLBilirubin Direct0.10.0-0.2 mg/dLAspartate Amino Kbxnkzdwtpe9968-63 U/LAlanine Iwwcmppmtydusijq1308-66 U/LAlkaline Riuuvjcahqu69 46-116 U/LTotal Protein7.06.4-8.2 g/dLAlbumin Level3.43.4-5.0 g/dLGlobulin3.6 Albumin Globulin Ratio0.9Performing Lab:see noteML - [facility] LBMM tomosynthesis screening BI Reviewed date:03/04/2025 12:54:40 PM Interpretation: Performing Lab: Notes/Report: Source Facility: [facility]-[address] [place] [address] Mammography Report Signed Patient: ALETA DAN MR#: [id number] : 1970 Acct:[id number] Age/Sex: 54 / F ADM Date: 03/03/25 Loc: MAMMO Attending Dr: Kaya Ervin D.O. Ordering Physician: Kaya Ervin D.O. Results: Date of Service: 03/03/25 Follow Up: Procedure(s): MM tomosynthesis screening BI Accession Number(s): [id number] cc: Kaya Ervin D.O.; Sunny Joya M.D. Patient Name: ALETA DAN MR#: [id number] : 1970 Exam Date: 03/03/2025 Ordering Doctor: DR KAYA ERVIN . RADIOLOGY REPORT PROCEDURE: MM TOMOSYNTHESIS SCREENING BI COMPARISON: MM TOMOSYNTHESIS SCREENING BI, 02/25/2024. MM TOMOSYNTHESIS SCREENING BI, 02/23/2023. MG MAMM SCREEN 3D ASHLEY CAD, 11/21/2021. MG MAMM SCREEN ASHLEY W CAD, 01/03/2018. INDICATIONS: Screening Calculator Name NCI Breast Cancer Risk Assessment Tool 5 Year Breast Cancer Risk 1.00% Lifetime Breast Cancer Risk 8.50% Personal Breast Cancer No Personal Ovarian Cancer No Treatments None Family Cancers Grandfather-maternal with pancreas cancer at age 75; Father with colon cancer at age 74; Grandmother-maternal with stomach cancer at age 70. LOCATION: [facility] BREAST COMPOSITION: There are scattered areas of fibroglandular density. FINDINGS: DIAGNOSTIC CATEGORY 1--NEGATIVE. RIGHT BREAST: No significant suspicious finding. LEFT BREAST: No significant suspicious finding. RECOMMENDATIONS: ROUTINE MAMMOGRAM AND CLINICAL EVALUATION IN 12 MONTHS. Dictated by: Luis A Kennedy DO on 03/03/2025 at 14:46 Approved by: Luis A Kennedy DO on 03/03/2025 at 14:48 Dictated By: Luis A Kennedy M.D. Signed By: 03/03/25 1449 DD/ 1448 TD/TT: Art History Professor:TSH Reviewed date:07/06/2024 08:56:56 PM Interpretation: Performing Lab: Notes/Report: [facility] ,Thyroid Stimulating Hormone3.5340.358-3.740 uIU/mLPerforming Lab:see noteML - [facility] LBT4 Reviewed date:07/06/2024 08:56:56 PM Interpretation: Performing Lab: Notes/Report: [facility] ,T4 Thyroxine8.404.80-13.90 ug/dLPerforming Lab:see noteML - [facility] LBPROF 14(COMP METB) Reviewed date:07/06/2024 08:56:56 PM Interpretation: Performing Lab: Notes/Report: [facility] ,Vnuyjq771649-669 mmol/LPotassium3.83.5-5.1 mmol/WJvtmuzpm06776-569 mmol/LCarbon Hsobjko17.021.0-32.0 mmol/LAnion Gap10.1Sangggd07154-221 mg/dLBlood Urea Btzbidxf73.07.0-18.0 mg/dLCreatinine1.010.55-1.02 mg/dLEstimated GFR ( Frieda>60>=60 mL/min/1.73m 2Estimated GFR (Non- Ame58>=60 mL/min/1.73m 2 BUN Creatinine Ratio15.7Qrvnpte7.98.5-10.1 mg/dLBilirubin Total0.60.2-1.0 mg/dL Aspartate Amino Twmscfboauk3037-92 U/LAlanine Fehlaxwfoktggznq0371-71 U/L Alkaline Tdbeordsgdf4706-934 U/LTotal Protein7.46.4-8.2 g/dLAlbumin Level3.43.4- 5.0 g/dLGlobulin4.0Albumin Globulin Ratio0.9Performing Lab:see [facility] LBLIPID PROFILE Reviewed date:07/06/2024 08:56:56 PM Interpretation: Performing Lab: Notes/Report: [facility] ,Noevrfhlkrouw280<=150 mg/iZOfrwccujmvn662<=200 mg/dLHDL Faptwldzkya4937-77 mg/dL > or =60 mg/dl - LOW CARDIOVASCULAR RISK <40 mg/dl - HIGH CARDIOVASCULAR RISK LDL Cholesterol Enebiquhfs893.0 <100 mg/dl OPTIMAL 100-129 mg/dl NEAR OR ABOVE OPTIMAL 130-159 mg/dl BORDERLINE HIGH 160-189 mg/dl HIGH >190 mg/dl VERY HIGH VLDL OXQINVLMEFC01.6Chol HDL Ratio4.5 3.3 - 4.4 LOW RISK 4.4 - 7.1 AVERAGE RISK 7.1 - 11.0 MODERATE RISK >11.0 HIGH RISK Performing Lab:see [facility]Hol[facility] LBINSULIN Reviewed date:07/06/2024 08:56:56 PM Interpretation: Performing Lab: Notes/Report: [facility] ,Ahhsxrd73.42.6-24.9 uIU/mL Performed at: [facility] [address]co[address] [id number] Music Assistant: Jamison Garcia PhD, Phone: [phone] Performing Lab:see [facility] Labco LBFREE T3 Reviewed date:07/06/2024 08:56:56 PM Interpretation: Performing Lab: Notes/Report: [facility] ,Free T32.602.18-3.98 pg/mLPerforming Lab:see [facility] LB Reason For Referral No Information Medications Medication SIG (Take, Route, Frequency, Duration) Notes Start Date End Date Status Iron 325 (65 Fe) MG 1 tablet Orally Daily ActiveSimvastatin 20 MG1 tablet Orally every evening; Duration: 90 days 5ActiveMagnesium 250 MG1 tablet with a meal Orally Once a dayActive Calcium 600 MG1 tablet with meals Orally Once a dayActiveVitamin C 500 MG1 tablet Orally Once a dayActiveProtonix 40 MG1 tablet Orally Once a day; Duration: 30 daysActiveVitamin D (Cholecalciferol) 25 MCG (1000 UT)1 capsule Orally Once a dayActiveVitamin B-12 1000 MCG1 tablet Orally Once a dayActive Amoxicillin-Pot Clavulanate 875-125 MG1 tablet Orally every 12 hrs; Duration: 10 days4ActiveZinc 50 MG1 tablet Orally Once a dayActive Social History Tobacco Use: Social History Observation Description Date Details (start date - stop date) Never Smoker NA - NA Tobacco Use/Smoking Question Answer Notes Patient is a nonsmoker Alcohol Screen (Audit-C) Question Answer Notes Did you have a drink containing alcohol in the p ast year? Yes How often did you have 6 or more drinks on one occasion in the past year?Never (0 point)How many drinks did you have on a typical day when you were drinking in the past year?1 or 2 drinks (0 point)How often did you have a drink containing alcohol in the past year?Less than monthly (1 point)Uyqaxc5Bybnihbwiuwfvf NegativeAUDIT-C (Standard) Question Answer Notes Did you have a drink containing alcohol in the p ast year? No Quzcvf4MhfmuoltwhzvxtWparqbpz Problems Problem Type SNOMED Code ICD Code Onset Dates Problem Status W/U Status Risk Notes Problem Hyperlipidemia (50705752) Hyperlipidemia (E78.5) ActiveconfirmedProblemAnxiety (63050445)Anxiety (F41.9)ActiveconfirmedProblem Hypothyroid (11086735)Hypothyroid (E03.9)ActiveconfirmedProblemAnemia (806766995)Anemia (D64.9)ActiveconfirmedProblemVaricose vein (12498433)Varicose vein (I86.8)ActiveconfirmedProblemSleep apnea (99615225)Sleep apnea (G47.30) ActiveconfirmedProblemAllergic rhinitis (58257780)Allergic rhinitis (J30.9) ActiveconfirmedProblemWell adult (447958445)Well adult (Z00.00)Activeconfirmed ProblemNear syncope (456779874)Near syncope (R55)Activeconfirmed Encounters Encounter Location Date Provider Diagnosis [facility] [address] [place] [address] 06/23/2024 Israel Joya Well adult Z00.00 [facility] [address] [place] [address] 07/06/2024 Israel Joya Elevated glucose lev el R73.09 and Hyperlipidemia E78.5 [facility] [address] [place] [address] 10/21/2024 Israel Joya [facility] [place] [address] 03/04/2025Dokhushi Joya Assessments Encounter Date Diagnosis (ICD Code) Assessment Notes Treatment Notes Treatment Clinical Notes Section Notes 06/23/2024 Well adult (ICD-10 - Z00.00) 07/06/2024Hyperlipidemia (ICD-10 - E78.5)07/06/2024Elevated glucose level (ICD- 10 - R73.09) Plan Of Treatment Pending Test Test Name Order Date CMP (COMPLETE METABOLIC PANEL) 3 CMP (COMPLETE METABOLIC PANEL) 4 HEMOGLOBIN A1C (GLYCO) 06/19/2024 HEMOGLOBIN A1C (GLYCO) 05/09/2023 IRON, TOTAL 05/09/2023 LIPID PANEL (CHOL/TRIG/HDL/LDL) 05/09/20 23 LIPID PANEL (CHOL/TRIG/HDL/LDL) 06/19/20 24 CBC WITH DIFF (EXP 05/2025) 06/19/2024 CBC WITH DIFF (EXP 05/2025) 05/09/2023 VITAMIN D, 25 LEVEL (TOTAL) 05/09/2023 Insulin Level 05/09/2023 Insulin Level 06/19/2024 STOOL OCCULT BLOOD 05/09/2023 GLYCOHEMOGLOBIN A1C 07/06/2024 LIPID PROFILE 07/06/2024 LIVER PROFILE 07/06/2024 THYROID PANEL (T4/TSH/FREE T3) 4 THYROID PANEL (T4/TSH/FREE T3) 3 Insurance Providers Payer Name Payer Address Payer Phone Subscriber Number Group Number Insured Name Patient Relationship to Insured Coverage Start Date Coverage End Date [employer] PPO PLUS LOCAL PLAN [address] [place] [address] [id number] John Dan - patient is the insured Medical (General) History Medical History History ICD Code Near syncope R55 Varicose vein I86.8 Hypothyroid E03.9 Sleep apnea G47.30 Anemia D64.9 Well adult Z00.00 Allergic rhinitis J30.9 Surgical History Surgery Date(Month/Year) x1 Hospitalization History Reason Date(Month/Year) fever/rash 2017
--- OUTSIDE RECORDS SUMMARY | 2025-06-23 20:09 | XMS_ITS | Clinical Summary ---
Author Organization [facility] tem Address [facility] [id number] [address] [place] [address] Care Team Providers Care Bander And Cellophaner Machine Helper Name Role Phone Sunny Joya MD Primary Care Provider [phone] Allergies No known active allergies Medications MedicationSigDispense QuantityRefillsLast FilledStart DateEnd DateStatus pantoprazole (PROTONIX) 40 mg EC tablet Take 40 mg by mouth in the morning.2Active ZINC ORAL Take 22 mg by mouth daily.Active ascorbic acid (VITAMIN C ORAL) Take 500 mg by mouth daily.Active magnesium 250 mg tablet Take 250 mg by mouth in the morning.Active ferrous sulfate (IRON ORAL) Take 65 mg by mouth.Active cholecalciferol, vitamin D3, (VITAMIN D3 ORAL) Take 10 mg by mouth.Active Active Problems No known active problems Family History Medical HistoryRelationNameCommentsNo Known ProblemsFatherHeart attackMother RelationNameStatusCommentsFatherDeceasedMotherDeceased Social History Tobacco UseTypesPacks/DayYears UsedDateSmoking Tobacco: NeverSmokeless Tobacco: NeverAlcohol UseStandard Drinks/WeekCommentsNot Currently0 (1 standard drink = 0.6 oz pure alcohol)ChildcareAnswerDate UfglkumgBnjyvamgvWgnmpsy86/12/2019 EmploymentAnswerDate XcgmflpsJxjijhtcdcCmigfhf87/12/2019Purpose - LifeAnswerDate RecordedPurpose and direction in cbpbDnfjmln01/11/2021CommentsNoSex and Gender InformationValueDate RecordedSex Assigned at BirthNot on fileLegal Sex Dvnqkb6302/04/2015 11:28 AM EDTGender IdentityNot on fileSexual OrientationNot on file Last Filed Vital Signs Vital SignReadingTime TakenCommentsBlood Vggdmpyb523/6809 6:45 AM EDT Riaih444203/13/2022 6:45 AM JTRQxpgxnulktn74.4 ??C (97.6 ??F)03/13/2022 6:45 AM EDTRespiratory Xhiw723503/13/2022 6:45 AM EDTOxygen Jyritdsxkt03%03/13/2022 6:45 AM EDTInhaled Oxygen Concentration--Msrjss492.1 kg (300 lb)03/13/2022 6:45 AM JIQOdcowr545.2 cm (5' 7 )03/13/2022 6:45 AM EDTBody Mass Index46.9903/13/2022 6:45 AM EDT Plan of Treatment Health MaintenanceDue DateLast DoneCommentsDepression Ueeikieqe32/14/1985Tobacco Vshamgnef40/14/1985Adult BMI Rxqadgkll92/14/1991Pap Smear1993Zoster (Shingles) Vaccine (1 of 2)2022OVID-19 Vaccine (3 - season) 504/, 09/30/2021Influenza Ajwbziu56/01/789958/, 04/02/2020DTaP,Tdap and Td Vaccines (2 - Td or Tdap)/, 12/12/19995306Kegvnkrsyyn12, 03/13/2022 Medical Devices Not on file Procedures Procedure NamePriorityDate/TimeAssociated ZbmsjjapmEcloeataXQYBIGDGNJZ88/12/2022 8:31 AM EDT from Last 3 Months or Most Recently Relevant to Health Maintenance Results * Colonoscopy (03/13/2022 8:31 AM EDT)Specimen (Source)Anatomical Location / LateralityCollection Method / VolumeCollection TimeReceived Time03/13/2022 8:31 AM EDT Narrative PM CARDIOVASCULAR - 03/13/2022 8:53 AM EDT [facility] Patient Name: Aleta Sierra ?? Procedure Date No Time: 03/13/2022 ?? CSN : [id number] Date of : 1970 Admit Type: Outpatient Age: 51 Room: [facility] OR Gender: Female Note Status: Finalized Attending MD: Cholo Zaldivar DO Procedure: ? Colonoscopy Indications: ? Screening for colorectal malignant neoplasm, Family ? history of colon cancer Providers: ? Cholo Zaldivar DO Referring MD: ?Cholo Zaldivar DO Medicines: ? Propofol per Anesthesia Complications: ? No immediate complications. Procedure: ? After I obtained informed consent, the scope was ? passed under direct vision. Throughout the procedure, ? the patient's blood pressure, pulse, and oxygen ? saturations were monitored continuously. The [employer] ? [id number] #[id number] ADULT COLONOSCOPE was introduced ? through the anus and advanced to the cecum, identified ? by appendiceal orifice and ileocecal valve. The ? colonoscopy was performed without difficulty. The ? patient tolerated the procedure well. The quality of ? the bowel preparation was good. Findings: ? A few small-mouthed diverticula were found in the sigmoid colon and ? descending colon. ? The exam was otherwise without abnormality on direct and retroflexion ? views. Estimated Blood Loss: ??Estimated blood loss: none. Impression: ?- Diverticulosis in the sigmoid colon and in the ? descending colon. ? - The examination was otherwise normal on direct and ? retroflexion views. ? - No specimens collected. Recommendation: ?- Discharge patient to home. ? - Patient has a contact number available for ? emergencies. The signs and symptoms of potential ? delayed complications were discussed with the patient. ? Return to normal activities tomorrow. Written ? discharge instructions were provided to the patient. ? - High fiber diet for the rest of the patient's life. ? - Repeat colonoscopy in 5 years for screening purposes. ? - Return to my office PRN. Procedure Code(s): ? --- Professional --- ? G0121, Colorectal cancer screening; colonoscopy on ? individual not meeting criteria for high risk Diagnosis Code(s): ? --- Professional --- ? Z12.11, Encounter for screening for malignant neoplasm of colon ? Z80.0, Family history of malignant neoplasm of digestive organs ? K57.30, Diverticulosis of large intestine without perforation or abscess ? without bleeding CPT copyright 2020 [employer]. All rights reserved. The codes documented in this report are preliminary and upon title insurance sales representative review may be revised to meet current compliance requirements. DO Cholo Madera DO 03/13/2022 8:53:20 AM Number of Addenda: 0 Note Initiated On: 03/13/2022 8:31 AM Procedure Note Cholo Zaldivar DO - 03/13/2022 [facility] Patient Name: Aleta Sierra Procedure Date No Time: 03/13/2022 CSN : [id number] Date of : 1970 Admit Type: Outpatient Age: 51 Room: [place] [address] Gender: Female Note Status: Finalized Attending MD: Cholo Zaldivar DO Procedure: Colonoscopy Indications: Screening for colorectal malignant neoplasm, Family history of colon cancer Providers: Cholo Zaldivar DO Referring MD: Cholo Zaldivar DO Medicines: Propofol per Anesthesia Complications: No immediate complications. Procedure: After I obtained informed consent, the scope was passed under direct vision. Throughout theprocedure, the patient's blood pressure, pulse, and oxygen saturations were monitored continuously. [employer] [id number] #[id number] ADULT COLONOSCOPE was introduced through the anus and advanced to the cecum,identified by appendiceal orifice and ileocecal valve. The colonoscopy was performed without difficulty. The patient tolerated the procedure well. The qualityof the bowel preparation was good. Findings: A few small-mouthed diverticula were found in the sigmoid colon and descending colon. The exam was otherwise without abnormality on direct and retroflexion views. Estimated Blood Loss: Estimated blood loss: none. Impression: - Diverticulosis in the sigmoid colon and in the descending colon. - The examination was otherwise normal on directand retroflexion views. - No specimens collected. Recommendation: - Discharge patient to home. - Patient has a contact number available for emergencies. The signs and symptoms of potential delayed complications were discussed with thepatient. Return to normal activities tomorrow. Written discharge instructions were provided to thepatient. - High fiber diet for the rest of the patient'slife. - Repeat colonoscopy in 5 years for screeningpurposes. - Return to my office PRN. Procedure Code(s): --- Professional --- G0121, Colorectal cancer screening; colonoscopy on individual not meeting criteria for high risk Diagnosis Code(s): --- Professional --- Z12.11, Encounter for screening for malignant neoplasm of colon Z80.0, Family history of malignant neoplasm of digestive organs K57.30, Diverticulosis of large intestine without perforation orabscess without bleeding CPT copyright 2020 [employer]. All rights reserved. The codes documented in this report are preliminary and upon title insurance sales representative reviewmay be revised to meet current compliance requirements. DO Cholo Madera DO 03/13/2022 8:53:20 AM Number of Addenda: 0 Note Initiated On: 03/13/2022 8:31 AM Authorizing ProviderResult TypeResult StatusMicbilly CLIFTON PROCEDURE ORDERABLESFinal ResultPerforming OrganizationAddressCity/State/ZIP CodePhone Number PM CARDIOVASCULAR from Last 3 Months or Most Recently Relevant to Health Maintenance Insurance * Guarantor: Aleta Sierra TypeRelation to PatientDate of BirthPhone Billing AddressPersonal/RdfucwUpgt54/14/1971 [facility] [place] [address] Care Teams Team MemberRelationshipSpecialtyStart DateEnd Sunny Joya MD PCP - GeneralFamily Medicine09/27/21
--- OUTSIDE RECORDS SUMMARY | 2025-06-23 20:09 | XMS_ITS | Patient Health Record ---
Author Organization [facility] Address [address] [place] [address] Care Team Providers Care Metal Can Inspector Name Role Phone Sunny Joya Primary Care Provider Unavailabl e Reason For Referral No Information Plan Of Treatment No Information Insurance Providers Payer Name Payer Address Payer Phone Subscriber Number Group Number Insured Name Patient Relationship to Insured Coverage Start Date Coverage End Date PROMPT PAY/Bill to Patient Phani DAN - patient is the insured
[2025-06-26 19:10] LABS: Age Gdln ACOG Testing Note (.); IGP, Aptima HPV, rfx 16/18,45 Note (.)
== END 2025-06-23 20:05 | disposition home or self-care (01) ==
LOC: LAB 20:04
PROVIDERS: PCP Family Medicine; Visit Provider Obstetrics & Gynecology
DX: Z01.419 Encounter for gynecological examination (general) (routine) without abnormal findings (principal)
CPT/HCPCS: 88175